=== PATIENT | female | born 1965 | race Caucasian/White ===

== ENCOUNTER 2016-06-05 12:41 | Inpatient (IN) | payer OTHER ==
[2016-06-05] MEDS ORDERED: diphenhydrAMINE 50 MG/ML 1 ML VIAL IVP STA (14:05)
[2016-06-05] MEDS ORDERED: SODIUM CHLORIDE 0.9% 1,000 ML IV ONE ×2 (14:05→17:07)
[2016-06-05] MEDS ORDERED: METOCLOPRAMIDE 5 MG/ML 2 ML VIAL IVP STA (14:05)
[2016-06-05] MEDS ORDERED: IPRATROPIUM-ALBUTEROL 3 ML NEB INHALATION STA ×2 (14:06→16:36)
[2016-06-05] MEDS ORDERED: methylPREDNISolone SOD SUCCI 125 MG/2 ML VIAL IV STA (14:06)
--- NOTE | 2016-06-05 14:15 | ED ---
Headache HPI - General Chief Complaint: Headache Stated Complaint: Confusion Time Seen by Provider: 06/05/16 13:53 Mode of arrival: ambulatory Limitations: no limitations - History of Present Illness Initial Comments: This is a 51-year-old female to history of chronic low back pain, COPD who presents emergency room for 3 days of constant analyzed headache. She states that it's all over her head and occasionally radiates to her neck. She states that she's been taking aspirin for this however this is not relieved her symptoms. She states that she now has a little bit of nausea because of the aspirin. She states that she has not had any vomiting. She denies any photophobia however admits to phonophobia. She states that she does get approximately 3-4 headaches per year however this one is atypical because she's had 3 or 4 headaches in the last couple of weeks. The daughter states that this morning she went to her house and noticed that she was acting a little bit confused and thus she decided to bring her in. The patient does admit to taking Xanax and 2 Bulan this morning which she is prescribed. She denies any fevers or chills. No chest pain however does admit to some shortness of breath especially at night. She states that she is wheezing a lot. She denies any other complaints. - Related Data Home Medications Medication Instructions Recorded Confirmed ALPRAZolam [Xanax] 1 mg PO TID 06/05/16 06/05/16 Albuterol Inhaler [Ventolin Hfa 2 puff INHALATION RT-Q4H PRN 06/05/16 06/05/16 Inhaler] Amitriptyline HCl [Elavil] 100 mg PO HS 06/05/16 06/05/16 Carisoprodol [Soma] 350 mg PO TID 06/05/16 06/05/16 HYDROcodone/APAP 10-325MG [Bulan 1 tab PO Q6H 06/05/16 06/05/16 10-325] Allergies Allergy/AdvReac Type Severity Reaction Status Date / Time No Known Allergies Allergy Verified 06/05/16 14:31 Review of Systems ROS Statement: Those systems with pertinent positive or pertinent negative responses have been documented in the HPI. ROS Other: All systems not noted in ROS Statement are negative. Past Medical History Additional Past Medical History / Comment(s): migraines chronic back pain History of Any Multi-Drug Resistant Organisms: None Reported Past Surgical History: No Surgical Hx Reported Past Psychological History: Anxiety, Depression Smoking Status: Current every day smoker Past Alcohol Use History: Occasional Past Drug Use History: None Reported General Exam - General Exam Comments Initial Comments: Constitutional: Awake alert Appears comfortable Head: Normocephalic atraumatic Eyes: no conjunctival injection No scleral icterus EOMI, pupils are 3 mm reactive bilaterally Neck: No JVD Supple, no meningismus Heart: Regular rate rhythm normal S1-S2 no murmurs Lungs: Bilateral inspiratory and expiratory wheezing No rales Abdomen: Soft nondistended nontender Extremities: Non edematous DP pulses intact Radial pulses intact Neuro: A&Ox3 cranial nerves II through XII are grossly intact, 5 out of 5 strength in upper and lower Chev[place] bilaterally, no ataxia with finger-nose and heel to burton testing. Psych: Appropriate mood and affect Limitations: no limitations Course Vital Signs 06/05/16 06/05/16 06/05/16 13:00 14:05 15:26 Temperature 99.0 F Pulse Rate 131 H 128 H Respiratory 18 16 Rate Blood Pressure 125/75 O2 Sat by Pulse Oximetry 06/05/16 06/05/16 06/05/16 15:37 16:23 16:42 Temperature 99.5 F Pulse Rate 126 H 119 H 118 H Respiratory 16 18 Rate Blood Pressure 114/71 O2 Sat by Pulse 81 L 94 L Oximetry 06/05/16 06/05/16 06/05/16 16:50 17:03 17:07 Temperature Pulse Rate 116 H 114 H Respiratory 18 Rate Blood Pressure O2 Sat by Pulse Oximetry 06/05/16 18:05 Temperature Pulse Rate 115 H Respiratory 22 Rate Blood Pressure 97/59 O2 Sat by Pulse 94 L Oximetry - Reevaluation(s) Reevaluation #1: 06/05/16 17:06 EKG showing sinus tachycardia with a rate of 116. No ST segment changes or T- wave inversions. QTC 472. Other intervals are normal. No ectopy. Reevaluation #2: 06/05/16 17:07 Is: The room by nursing. She states the patient was sleeping and having very shallow breaths. She checked a pulse ox and was 78%. She was placed on 4 L. Patient is persistently tachycardic. She does not claim any chest pain however I'm going to get a CT of her chest to further evaluate this. She does have low- grade temperature 99.5 and leukocytosis. There is concern for infection. Reevaluation #3: 06/05/16 18:05 Patient is currently comfortable. No headache at the time. She is awake and alert and able to speak with me. Seems improved from before when she is on the oxygen. She does desat rather quickly when the oxygen is taken away. CTA did not reveal pulmonary embolism however did show a left sided pneumonia. Patient started on Levaquin. Blood pressure is in the 90 systolic however lactic was normal previously. We will repeat lactic. Blood cultures are being drawn. Patient will be admitted for pneumonia and sepsis. Medical Decision Making - Medical Decision Making This 51-year-old female presents emergency department mostly for headache and confusion. Upon further workup the patient was found by hypoxic without oxygen. Her mental status did improve with the oxygen. She was found have a pneumonia on computed tomography scan. Patient also has CO2 retention however this appears chronic as her pH is within normal limits. She is awake and alert and able to speak with me. She does have some confused speech at times however I feel that this is multifactorial secondary to the infection and also all the medications that she took. She states that she took her Bulan, Xanax, and Soma this morning. BiPAP was not started at this time however she may required if her breathing gets worse. Going to admit her to [facility]. Patient is going to be admitted for sepsis and pneumonia to Dr. Henning. - Lab Data Result diagrams: 06/05/16 14:30 06/05/16 14:30 Lab Results 06/05/16 06/05/16 06/05/16 Range/Units 14:30 14:30 14:30 WBC 12.9 H (3.8-10.6) k/uL RBC 4.32 (3.80-5.40) m/uL Hgb 14.4 (11.4-16.0) gm/dL Hct 45.0 (34.0-46.0) % MCV 104.2 H (80.0-100.0) fL MCH 33.4 (25.0-35.0) pg MCHC 32.0 (31.0-37.0) g/dL RDW 12.6 (11.5-15.5) % Plt Count 291 (150-450) k/uL Neutrophils % 77 % Lymphocytes % 12 % Monocytes % 7 % Eosinophils % 2 % Basophils % 2 % Neutrophils # 9.9 H (1.3-7.7) k/uL Lymphocytes # 1.5 (1.0-4.8) k/uL Monocytes # 0.9 (0-1.0) k/uL Eosinophils # 0.2 (0-0.7) k/uL Basophils # 0.2 (0-0.2) k/uL Macrocytosis Slight PT 10.9 (9.0-12.0) sec INR 1.1 (<1.1) VBG pH (7.31-7.41) VBG pCO2 (37-51) mmHg VBG HCO3 (24-28) mmol/L Sodium 141 (137-145) mmol/L Potassium 4.2 (3.5-5.1) mmol/L Chloride 95 L (98-107) mmol/L Carbon Dioxide 37 H (22-30) mmol/L Anion Gap 9 mmol/L BUN 7 (7-17) mg/dL Creatinine 0.63 (0.52-1.04) mg/dL Est GFR (MDRD) Af Amer >60 (>60 ml/min/1.73 sqM) Est GFR (MDRD) Non-Af >60 (>60 ml/min/1.73 sqM) Glucose 103 H (74-99) mg/dL Plasma Lactic Acid Reilly (0.7-2.0) mmol/L Calcium 9.7 (8.4-10.2) mg/dL Magnesium 1.8 (1.6-2.3) mg/dL Total Bilirubin 0.7 (0.2-1.3) mg/dL AST 30 (14-36) U/L ALT 35 (9-52) U/L Alkaline Phosphatase 72 (38-126) U/L Total Protein 7.6 (6.3-8.2) g/dL Albumin 4.6 (3.5-5.0) g/dL Urine Color Urine Appearance (Clear) Urine pH (5.0-8.0) Ur Specific [place] (1.001-1.035) Urine Protein (Negative) Urine Glucose (UA) (Negative) Urine Ketones (Negative) Urine Blood (Negative) Urine Nitrate (Negative) Urine Bilirubin (Negative) Urine Urobilinogen (<2.0) mg/dL Ur Leukocyte Esterase (Negative) Urine RBC (0-5) /hpf Urine WBC (0-5) /hpf Ur Squamous Epith Cells (0-4) /hpf Urine Mucus (None) /hpf Urine HCG, Qual (Not Detectd) Urine Opiates Screen (NotDetected) Ur Oxycodone Screen (NotDetected) Urine Methadone Screen (NotDetected) Ur Propoxyphene Screen (NotDetected) Ur Barbiturates Screen (NotDetected) U Tricyclic Antidepress (NotDetected) Ur Phencyclidine Scrn (NotDetected) Ur Amphetamines Screen (NotDetected) U Methamphetamines Scrn (NotDetected) U Benzodiazepines Scrn (NotDetected) Urine Cocaine Screen (NotDetected) U Marijuana (THC) Screen (NotDetected) Serum Alcohol <10 mg/dL Influenza Type A RNA (Not Detectd) Influenza Type B (PCR) (Not Detectd) 06/05/16 06/05/16 06/05/16 Range/Units 14:30 14:30 15:25 WBC (3.8-10.6) k/uL RBC (3.80-5.40) m/uL Hgb (11.4-16.0) gm/dL Hct (34.0-46.0) % MCV (80.0-100.0) fL MCH (25.0-35.0) pg MCHC (31.0-37.0) g/dL RDW (11.5-15.5) % Plt Count (150-450) k/uL Neutrophils % % Lymphocytes % % Monocytes % % Eosinophils % % Basophils % % Neutrophils # (1.3-7.7) k/uL Lymphocytes # (1.0-4.8) k/uL Monocytes # (0-1.0) k/uL Eosinophils # (0-0.7) k/uL Basophils # (0-0.2) k/uL Macrocytosis PT (9.0-12.0) sec INR (<1.1) VBG pH 7.34 (7.31-7.41) VBG pCO2 68 H (37-51) mmHg VBG HCO3 36 H (24-28) mmol/L Sodium (137-145) mmol/L Potassium (3.5-5.1) mmol/L Chloride (98-107) mmol/L Carbon Dioxide (22-30) mmol/L Anion Gap mmol/L BUN (7-17) mg/dL Creatinine (0.52-1.04) mg/dL Est GFR (MDRD) Af Amer (>60 ml/min/1.73 sqM) Est GFR (MDRD) Non-Af (>60 ml/min/1.73 sqM) Glucose (74-99) mg/dL Plasma Lactic Acid Reilly 0.9 (0.7-2.0) mmol/L Calcium (8.4-10.2) mg/dL Magnesium (1.6-2.3) mg/dL Total Bilirubin (0.2-1.3) mg/dL AST (14-36) U/L ALT (9-52) U/L Alkaline Phosphatase (38-126) U/L Total Protein (6.3-8.2) g/dL Albumin (3.5-5.0) g/dL Urine Color Yellow Urine Appearance Cloudy H (Clear) Urine pH 7.5 (5.0-8.0) Ur Specific [place] 1.014 (1.001-1.035) Urine Protein Trace H (Negative) Urine Glucose (UA) Negative (Negative) Urine Ketones Negative (Negative) Urine Blood Negative (Negative) Urine Nitrate Negative (Negative) Urine Bilirubin Negative (Negative) Urine Urobilinogen <2.0 (<2.0) mg/dL Ur Leukocyte Esterase Negative (Negative) Urine RBC 2 (0-5) /hpf Urine WBC 1 (0-5) /hpf Ur Squamous Epith Cells 4 (0-4) /hpf Urine Mucus Rare H (None) /hpf Urine HCG, Qual (Not Detectd) Urine Opiates Screen Not Detected (NotDetected) Ur Oxycodone Screen Detected H (NotDetected) Urine Methadone Screen Not Detected (NotDetected) Ur Propoxyphene Screen Not Detected (NotDetected) Ur Barbiturates Screen Not Detected (NotDetected) U Tricyclic Antidepress Detected H (NotDetected) Ur Phencyclidine Scrn Not Detected (NotDetected) Ur Amphetamines Screen Not Detected (NotDetected) U Methamphetamines Scrn Not Detected (NotDetected) U Benzodiazepines Scrn Detected H (NotDetected) Urine Cocaine Screen Not Detected (NotDetected) U Marijuana (THC) Screen Not Detected (NotDetected) Serum Alcohol mg/dL Influenza Type A RNA (Not Detectd) Influenza Type B (PCR) (Not Detectd) 06/05/16 06/05/16 Range/Units 15:25 17:00 WBC (3.8-10.6) k/uL RBC (3.80-5.40) m/uL Hgb (11.4-16.0) gm/dL Hct (34.0-46.0) % MCV (80.0-100.0) fL MCH (25.0-35.0) pg MCHC (31.0-37.0) g/dL RDW (11.5-15.5) % Plt Count (150-450) k/uL Neutrophils % % Lymphocytes % % Monocytes % % Eosinophils % % Basophils % % Neutrophils # (1.3-7.7) k/uL Lymphocytes # (1.0-4.8) k/uL Monocytes # (0-1.0) k/uL Eosinophils # (0-0.7) k/uL Basophils # (0-0.2) k/uL Macrocytosis PT (9.0-12.0) sec INR (<1.1) VBG pH (7.31-7.41) VBG pCO2 (37-51) mmHg VBG HCO3 (24-28) mmol/L Sodium (137-145) mmol/L Potassium (3.5-5.1) mmol/L Chloride (98-107) mmol/L Carbon Dioxide (22-30) mmol/L Anion Gap mmol/L BUN (7-17) mg/dL Creatinine (0.52-1.04) mg/dL Est GFR (MDRD) Af Amer (>60 ml/min/1.73 sqM) Est GFR (MDRD) Non-Af (>60 ml/min/1.73 sqM) Glucose (74-99) mg/dL Plasma Lactic Acid Reilly (0.7-2.0) mmol/L Calcium (8.4-10.2) mg/dL Magnesium (1.6-2.3) mg/dL Total Bilirubin (0.2-1.3) mg/dL AST (14-36) U/L ALT (9-52) U/L Alkaline Phosphatase (38-126) U/L Total Protein (6.3-8.2) g/dL Albumin (3.5-5.0) g/dL Urine Color Urine Appearance (Clear) Urine pH (5.0-8.0) Ur Specific [place] (1.001-1.035) Urine Protein (Negative) Urine Glucose (UA) (Negative) Urine Ketones (Negative) Urine Blood (Negative) Urine Nitrate (Negative) Urine Bilirubin (Negative) Urine Urobilinogen (<2.0) mg/dL Ur Leukocyte Esterase (Negative) Urine RBC (0-5) /hpf Urine WBC (0-5) /hpf Ur Squamous Epith Cells (0-4) /hpf Urine Mucus (None) /hpf Urine HCG, Qual Not Detected (Not Detectd) Urine Opiates Screen (NotDetected) Ur Oxycodone Screen (NotDetected) Urine Methadone Screen (NotDetected) Ur Propoxyphene Screen (NotDetected) Ur Barbiturates Screen (NotDetected) U Tricyclic Antidepress (NotDetected) Ur Phencyclidine Scrn (NotDetected) Ur Amphetamines Screen (NotDetected) U Methamphetamines Scrn (NotDetected) U Benzodiazepines Scrn (NotDetected) Urine Cocaine Screen (NotDetected) U Marijuana (THC) Screen (NotDetected) Serum Alcohol mg/dL Influenza Type A RNA Not Detected (Not Detectd) Influenza Type B (PCR) Not Detected (Not Detectd) Disposition Clinical Impression: Sepsis, CAP (community acquired pneumonia), Encephalopathy Disposition: ADMITTED IP TO THIS HOSP Condition: Fair
[2016-06-05 14:37] LABS: Basophils # (A) 0.2 k/uL (0-0.2); Basophils % (A) 2 %; CH 33.3; CHCM 32.1; Eosinophils # (A) 0.2 k/uL (0-0.7); Eosinophils % (A) 2 %; HDW 2.18; HGB 14.4 gm/dL (11.4-16.0); Luc # (Auto) 0.14; Luc % (Auto) 1; Lymphocytes # (A) 1.5 k/uL (1.0-4.8); Lymphocytes % (A) 12 %; MCH 33.4 pg (25.0-35.0); MCV 104.2 fL (80.0-100.0); Macrocytosis Slight; Mean Platelet Volume 7.2; Monocytes # (A) 0.9 k/uL (0-1.0); Monocytes % (A) 7 %; Neutrophils # (A) 9.9 k/uL (1.3-7.7); Neutrophils % (A) 77 %; RBC 4.32 m/uL (3.80-5.40); RDW 12.6 % (11.5-15.5); WBC 12.9 k/uL (3.8-10.6); WBC (Perox) 13.22
[2016-06-05 14:38] LABS: VBG PH 7.34 (7.31-7.41)
--- NOTE | 2016-06-05 14:45 | XR ---
EXAMINATION TYPE: XR chest 2V DATE OF EXAM: 06/05/2016 2:41 PM COMPARISON: 06/19/2012 HISTORY: Shortness of breath TECHNIQUE: Frontal and lateral views of the chest are obtained. FINDINGS: Scattered senescent parenchymal changes noted. Hyperinflation compatible with COPD. No evidence for infiltrate. No evidence for atelectasis. Heart size is stable. Mediastinal structures are stable and grossly unremarkable. No evidence for hilar prominence. Degenerative changes dorsal spine. IMPRESSION: 1. No evidence for acute pulmonary disease.
[2016-06-05 14:46] LABS: ALT 35 U/L (9-52); AST 30 U/L (14-36); Alcohol <10 mg/dL; Alkaline Phosphatase 72 U/L (38-126); Anion Gap 9 mmol/L; Blood Urea Nitrogen 7 mg/dL (7-17); Calcium 9.7 mg/dL (8.4-10.2); Carbon Dioxide 37 mmol/L (22-30); Chloride 95 mmol/L (98-107); Glucose 103 mg/dL (74-99); Magnesium 1.8 mg/dL (1.6-2.3); Non-African American GFR(MDRD) >60 (>60 ml/min/1.73 sqM); Potassium 4.2 mmol/L (3.5-5.1); Sodium 141 mmol/L (137-145); Total Bilirubin 0.7 mg/dL (0.2-1.3); Total Protein 7.6 g/dL (6.3-8.2)
[2016-06-05 14:48] LABS: INR 1.1 (<1.1); Prothrombin Time 10.9 sec (9.0-12.0)
--- NOTE | 2016-06-05 15:16 | CT ---
EXAMINATION TYPE: CT brain wo con DATE OF EXAM: 06/05/2016 3:05 PM COMPARISON: 07/25/2011 INDICATION: Headache for 3-4 days with nausea DLP: 1121 mGycm, Automated exposure control for dose reduction was used. CONTRAST: None CT of the brain is performed utilizing 3 mm thick sections through the posterior fossa and 3 mm thick sections through the remaining calvarium. Study is performed within 24 hours of arrival to the hosp [facility]. No abnormal hyperdensity is present to suggest an acute intracranial hemorrhage. No mass lesion is evident. No acute infarcts are evident. Ventricles and sulci are appropriate for the patient age. Paranasal sinuses and mastoid air cells within the [id number] are clear. IMPRESSIONS: 1. Normal CT Brain
[2016-06-05 15:44] LABS: Appearance,Urine Cloudy (Clear); Bilirubin,Urine Negative (Negative); Glucose,Urine (UA) Negative (Negative); Ketones,Urine Negative (Negative); Leukocyte Esterase,Urine Negative (Negative); Mucus,Urine Rare /hpf; Nitrite,Urine Negative (Negative); PH, Urine 7.5 (5.0-8.0); Particle Count 6900; Protein,Urine Trace (Negative); RBC,Urine 2 /hpf (0-5); Specific Gravity,Urine 1.014 (1.001-1.035); Squamous Epithelial Cell,Urine 4 /hpf (0-4); UA Billing (MACRO vs. MICRO) MICRO; Urobilinogen,Urine <2.0 mg/dL (<2.0); WBC,Urine 1 /hpf (0-5)
[2016-06-05] MEDS ORDERED: KETOROLAC 30 MG/ML 1 ML VIAL IVP STA (15:45)
[2016-06-05] MEDS ORDERED: RX INFO: IV CONTRAST WAS GIVEN 1 EACH MISC MISCELLANE PRN (16:35)
--- NOTE | 2016-06-05 17:44 | CT ---
EXAMINATION TYPE: CT angio chest DATE OF EXAM: 06/05/2016 5:25 PM COMPARISON: NONE HISTORY: Pt states of SOB today. CT DLP: 309 mGycm Automated exposure control for dose reduction was used. CONTRAST: CTA scan of the thorax is performed with IV Contrast, patient injected with 90 mL of Omnipaque 350, p ulmonary embolism protocol. . There are Three-D postprocessed images. FINDINGS: There is mild pulmonary emphysema. There is a poorly marginated 4 cm infiltrate in the left lower lob e superior segment. There is no evidence of a pulmonary mass. There is no pleural effusion. Heart size is normal. There is normal contrast opacification of the pulmonary arteries. I see no fill ing defect. There are no hilar masses. There is no mediastinal adenopathy. There is normal appearance of the thoracic aorta. There is no sign of aneurysm or dissection. There is a small hiatal hernia. T here is an enlarged air filled thoracic esophagus. IMPRESSION: NO EVIDENCE OF PULMONARY EMBOLISM. THERE IS A 4 CM INFILTRATE IN THE LEFT LOWER LOBE THAT IS PROBABLY ORDINARY BRONCHOPNEUMONIA. PULMONARY EMPHYSEMA. HIATAL HERNIA WITH AIR IN THE THORACIC ESOPHAGUS COULD RELATE TO ESOPHAGEAL DYSF UNCTION.
[2016-06-05] MEDS ORDERED: AZITHROMYCIN 500 MG in SODIUM CHLORIDE 0.9% 250 ML IVPB STA (17:46)
[2016-06-05] MEDS ORDERED: PNEUMONIA PROTOCOL UTILIZED 1 EACH MISC PO PRN (18:00)
[2016-06-05] MEDS ORDERED: LEVOFLOXACIN 750MG-D5W PMX 750 MG in DEXTROSE/WATER 1 150ML.BAG IVPB STA (18:00)
[2016-06-05] MEDS: SODIUM CHLORIDE 0.9% 1,000 ML IV SCH (22:37)
[2016-06-06] MEDS ORDERED: ALBUTEROL NEBULIZED 2.5 MG/3 ML INHALATION PRN (01:11)
[2016-06-06] MEDS: HYDROcodone/APAP 10-325MG 1 EACH TAB PO PRN ×3 (04:00→22:03)
[2016-06-06] MEDS: NICOTINE 21MG/24HR PATCH TRANSDERM SCH (08:17)
[2016-06-06] MEDS: ALPRAZolam 0.5 MG TAB PO SCH ×3 (08:18→21:58)
[2016-06-06] MEDS: SODIUM CHLORIDE 0.9% 1,000 ML IV SCH ×2 (08:20→15:08)
[2016-06-06] MEDS: CARISOPRODOL 350 MG TAB PO PRN ×2 (11:38→17:10)
--- NOTE | 2016-06-06 12:35 | P.CNPUL ---
History of Present Illness Consult date: 06/06/16 Requesting physician: Marck Henning Reason for consult: COPD, pneumonia Chief complaint: Headaches and mental status change History of present illness: This is a 51-year-old female to history of chronic low back pain, COPD who presents emergency room for 3 days of constant analyzed headache. She states that it's all over her head and occasionally radiates to her neck. She states that she's been taking aspirin for this however this is not relieved her symptoms. She states that she now has a little bit of nausea because of the aspirin. She states that she has not had any vomiting. She denies any photophobia . She states that she does get approximately 3-4 headaches per year however this one is atypical because she's had 3 or 4 headaches in the last couple of weeks. The daughter went to her house and noticed that she was acting a little bit confused and thus she decided to bring her in. The patient does admit to taking Xanax and 2 [place] this morning which she is prescribed. She denies any fevers or chills. No chest pain however does admit to some shortness of breath especially at night. She states that she is wheezing a lot. She denies any other complaints. Workup in the ER included a CT of the brain which was negative, chest x-ray which was also negative, CT of the chest was done to rule out pulmonary embolism, and it showed a very tiny limited infiltrate in the left lower lobe. According to the patient when she came into the ER, she has no pulmonary symptoms whatsoever, she has a chronic cough related to have COPD, but once the ER physician noticed the abnormal CT of the chest, patient was admitted with the impression of pneumonia although the patient has no pulmonary symptoms whatsoever upon presentation. CBC showed a bit of leukocytosis, patient had a venous ABG which showed a relative hypercapnia, mild with excellent metabolic compensation, and that's expected considering the patient's underlying COPD, her baseline bicarb on the electrolytes is 37. Drug screen was positive for oxycodone try cyclic's and benzodiazepines. Patient was admitted and this consult was initiated. Presently, the patient denies any shortness of breath, she has chronic occasional cough, denies any fever no chills no hemoptysis no chest pain. Review of Systems 14 point review of systems were obtained, please refer to pertinent positives and negatives in HPI. Past Medical History Past Medical History: Asthma, COPD, Pneumonia Additional Past Medical History / Comment(s): migraines chronic back pain "sporatic hand tremors-sometimes i just drops things" History of Any Multi-Drug Resistant Organisms: None Reported Past Surgical History: No Surgical Hx Reported Additional Past Surgical History / Comment(s): wisdom teeth extracted Past Anesthesia/Blood Transfusion Reactions: No Reported Reaction Past Psychological History: Anxiety, Depression Smoking Status: Current every day smoker Past Alcohol Use History: None Reported Additional Past Alcohol Use History / Comment(s): started smoking at age 14 was smoking 1-1.5 ppd now down to 8 cig per day trying to quit. Past Drug Use History: None Reported - Past Family History Mother Family Medical History: Cancer, Hypertension Additional Family Medical History / Comment(s): throat cancer, anxiety, depression Father Family Medical History: Liver Disease Additional Family Medical History / Comment(s): from cirrhosis of the liver wehn pt was 16 years old. Medications and Allergies Home Medications Medication Instructions Recorded Confirmed Type ALPRAZolam [Xanax] 1 mg PO TID 06/05/16 06/05/16 History Albuterol Inhaler [Ventolin Hfa 2 puff INHALATION RT-Q4H PRN 06/05/16 06/05/16 History Inhaler] Amitriptyline HCl [Elavil] 100 mg PO HS 06/05/16 06/05/16 History Carisoprodol [Soma] 350 mg PO TID 06/05/16 06/05/16 History HYDROcodone/APAP 10-325MG [Townsend 1 tab PO Q6H 06/05/16 06/05/16 History 10-325] Allergies Allergy/AdvReac Type Severity Reaction Status Date / Time Influenza Virus Vaccines Allergy Unknown Verified 06/05/16 19:49 Physical Exam Vitals: Vital Signs Temp Pulse Pulse Resp BP BP Pulse Ox 06/06/16 11:00 98.2 F 83 16 94/57 95 06/06/16 08:40 84 16 06/06/16 07:55 96.5 F L 84 16 103/72 99 06/06/16 04:00 96.4 F L 89 18 115/70 95 06/06/16 00:30 96.8 F L 91 20 95/54 95 06/05/16 20:25 97.1 F L 102 H 20 105/66 94 L 06/05/16 19:07 98.0 F 108 H 16 104/71 96 06/05/16 18:05 115 H 22 97/59 94 L Intake and Output 06/05/16 06/06/16 06/06/16 22:59 06:59 14:59 Intake Total 1350 120 Output Total 400 Balance -400 1350 120 Intake: IV 1350 Levofloxacin 750Mg-D5w 150 Pmx 750 mg In Dextrose/ Water 1 150ml.bag @ 100 mls/hr IVPB ONCE STA Rx#: [id number] Sodium Chloride 0.9% 1, 1200 000 ml @ 100 mls/hr IV . Q10H ERIC Rx#:[id number] Oral 120 Output: Urine 400 Other: Voiding Method Toilet Toilet Toilet # Voids 3 Weight 43.5 kg 43.5 kg Patient Weight 06/07/16 06:59 Weight 43.5 kg Physical Exam: Revealed a 51-year-old female in no distress HEENT:[Neck is supple.] [No neck masses.] [No thyromegaly.] [No JVD.] Chest: [Diminished breath sounds at the bases some wheezing on forced expiratory maneuver only] Cardiac Exam: [Normal S1 and S2, no S3 gallop, no murmur.] Abdomen: [Soft, nontender, no megaly, no rebound, no guarding, normal bowel sounds.] Extremities: [No clubbing, no edema, no cyanosis.] Neurological Exam: [No focal neurologic deficit.] Results - Laboratory Findings CBC and BMP: 06/05/16 14:30 06/05/16 14:30 PT/INR, D-dimer PT 10.9 sec (9.0-12.0) 06/05/16 14:30 INR 1.1 (<1.1) 06/05/16 14:30 - Diagnostic Findings Chest x-ray: image reviewed CT scan - chest: image reviewed Assessment and Plan Plan: Impression: 1 chronic cephalgia, etiology is not clear, patient had a negative CT of the brain, she had chronic headaches for most of her life, hence I recommended a neurological evaluation and input regarding her symptoms and her symptoms of mental status change. I believe her mental status changes mostly related to the narcotics and anxiolytic medications that the patient was taking. 2 history of severe COPD and possible mild exacerbation on presentation. 3 limited left lower lobe infiltrate, this could be managed with antibiotics on outpatient basis. Recommendation: 1 neurologic consult 2 resume her usual medications for chronic cephalgia 3 continue albuterol with Atrovent, continue Levaquin, counseled regarding smoking cessation, continue nicotine patch, consider discharge planning and the patient is cleared by neurology. Again her COPD and her pneumonia could be treated on outpatient basis. Patient will be given a follow-up appointment to see me on outpatient basis. Time with Patient: Greater than 30
[2016-06-06] MEDS: ALBUTEROL NEBULIZED 2.5 MG/3 ML INHALATION PRN ×2 (16:52→20:55)
[2016-06-06] MEDS: LEVOFLOXACIN 750 MG TAB PO SCH (17:10)
--- NOTE | 2016-06-06 17:30 | P.HPIM ---
History of Present Illness 51-year-old female was brought to the emergency room after having some periods of confusion. Patient has a history of chronic low back pain and COPD. Patient was complaining of headache. Review of Systems Constitutional: Reports fatigue Respiratory: Reports cough Neurological: Reports headaches, Reports migraines Past Medical History Past Medical History: Asthma, COPD, Pneumonia Additional Past Medical History / Comment(s): migraines chronic back pain "sporatic hand tremors-sometimes i just drops things" History of Any Multi-Drug Resistant Organisms: None Reported Past Surgical History: No Surgical Hx Reported Additional Past Surgical History / Comment(s): wisdom teeth extracted Past Anesthesia/Blood Transfusion Reactions: No Reported Reaction Past Psychological History: Anxiety, Depression Smoking Status: Current every day smoker Past Alcohol Use History: None Reported Additional Past Alcohol Use History / Comment(s): started smoking at age 14 was smoking 1-1.5 ppd now down to 8 cig per day trying to quit. Past Drug Use History: None Reported - Past Family History Mother Family Medical History: Cancer, Hypertension Additional Family Medical History / Comment(s): throat cancer, anxiety, depression Father Family Medical History: Liver Disease Additional Family Medical History / Comment(s): from cirrhosis of the liver wehn pt was 16 years old. Medications and Allergies Home Medications Medication Instructions Recorded Confirmed Type ALPRAZolam [Xanax] 1 mg PO TID 06/05/16 06/05/16 History Albuterol Inhaler [Ventolin Hfa 2 puff INHALATION RT-Q4H PRN 06/05/16 06/05/16 History Inhaler] Amitriptyline HCl [Elavil] 100 mg PO HS 06/05/16 06/05/16 History Carisoprodol [Soma] 350 mg PO TID 06/05/16 06/05/16 History HYDROcodone/APAP 10-325MG [[place] 1 tab PO Q6H 06/05/16 06/05/16 History 10-325] Allergies Allergy/AdvReac Type Severity Reaction Status Date / Time Influenza Virus Vaccines Allergy Unknown Verified 06/05/16 19:49 Physical Exam Vitals: Vital Signs Temp Pulse Pulse Resp BP BP Pulse Ox 06/06/16 17:01 110 H 06/06/16 16:52 110 H 06/06/16 16:00 16 112/65 100 06/06/16 11:00 98.2 F 83 16 94/57 95 06/06/16 08:40 84 16 06/06/16 07:55 96.5 F L 84 16 103/72 99 06/06/16 04:00 96.4 F L 89 18 115/70 95 06/06/16 00:30 96.8 F L 91 20 95/54 95 06/05/16 20:25 97.1 F L 102 H 20 105/66 94 L 06/05/16 19:07 98.0 F 108 H 16 104/71 96 06/05/16 18:05 115 H 22 97/59 94 L Intake and Output 06/06/16 06/06/16 06/06/16 06:59 14:59 22:59 Intake Total 1350 120 Balance 1350 120 Intake: IV 1350 Levofloxacin 750Mg-D5w 150 Pmx 750 mg In Dextrose/ Water 1 150ml.bag @ 100 mls/hr IVPB ONCE STA Rx#: [id number] Sodium Chloride 0.9% 1, 1200 000 ml @ 100 mls/hr IV . Q10H [facility] Rx#:[id number] Oral 120 Other: Voiding Method Toilet Toilet # Voids 3 1 Weight 43.5 kg 43.5 kg Patient Weight 06/07/16 06:59 Weight 43.5 kg - Constitutional General appearance: thin - EENT Eyes: PERRLA Ears: bilateral: normal - Neck Neck: normal ROM - Respiratory Respiratory: bilateral: rhonchi - Cardiovascular Rhythm: regular - Gastrointestinal General gastrointestinal: soft - Integumentary Integumentary: normal - Neurologic Neurologic: CNII-XII intact - Psychiatric Psychiatric: A&O x's 3, appropriate affect, intact judgment & insight Results CBC & Chem 7: 06/05/16 14:30 06/05/16 14:30 Abdominal x-ray: report reviewed CT scan - chest: report reviewed CT Scan - head: report reviewed Thrombosis Risk Factor Assmnt - Choose All That Apply Any of the Below Risk Factors Present?: Yes Each Factor Represents 1 point: Abnormal pulmonary function (COPD), Age 41-60 years, Sepsis (< 1month), Serious lung disease incl. pneumonia (< 1month) Other Risk Factors: No Other congenital or acquired thrombophilia - If yes, enter type in comment: No Thrombosis Risk Factor Assessment Total Risk Factor Score: 4 Thrombosis Risk Factor Assessment Level: Moderate Risk Assessment and Plan Plan: Assessment Sepsis community-acquired pneumonia Encephalopathy Migraines Chronic pain COPD severe with hypoxia Nicotine use Plan Pulmonology consultation Neurology Dr. Sanchez regarding headache Patient on Levaquin and Zithromax
[2016-06-06] MEDS: AMITRIPTYLINE HCL 50 MG TAB PO SCH (21:57)
--- NOTE | 2016-06-07 05:14 | CONS ---
DATE OF CONSULTATION: 06/06/2016 CHIEF COMPLAINT: Headache and altered mental status. HISTORY OF PRESENT ILLNESS: Mrs. Avendaño is a 51-year-old, female who is being evaluated by the neurology service per the request of Dr. Marck Henning for the above-mentioned complaints. The patient was brought into [facility] Emergency Room after she was found to be confused by her family. The patient denies any recent head injuries and denies any fevers. She was also complaining of a headache that she describes as a throbbing pain that is mostly in the bilateral occipital region. A CT scan of the brain was done, which was negative. Her CBC showed mild leukocytosis at 12.9. Her comprehensive metabolic profile and urinalysis were normal. Her urine drug screen was positive for oxycodone, tricyclic antidepressants, and benzodiazepine. According to her home medications, the patient is not on any oxycodone. She does report being treated with [place] for her chronic low back pain, which is being prescribed by Dr. De Paz. Her urine drug screen was negative for opiates. She is on Xanax at home and Elavil at home, which makes the rest of her urine drug screen consistent. At the time of my evaluation, the patient's mental status has significantly improved. She is quite awake, and oriented. She was diagnosed with pneumonia and she is be on antibiotics for this. She continues to complain of a headache that is in the occipital region. She rates the headache at 6 out of 10 in intensity at the time of my evaluation. PAST MEDICAL HISTORY: Chronic pain syndrome, chronic obstructive pulmonary disease, asthma, migraine headaches, anxiety disorder, depression. SOCIAL HISTORY: The patient is a current every day smoker. She denies any alcohol or IV drug use. FAMILY HISTORY: Positive for cancer, depression, hypertension, liver disease. HOME MEDICATIONS: Reviewed in the chart. ALLERGIES: INFLUENZA VIRUS VACCINE. REVIEW OF SYSTEMS: CONSTITUTIONAL: Negative. EYES: Negative. ENT: Negative. CARDIOVASCULAR: Negative. RESPIRATORY: Positive for occasional shortness of breath and frequent coughs. NEUROLOGICAL: As mentioned above. GASTROINTESTINAL: Negative. GENITOURINARY: Negative. PSYCHIATRIC: As mentioned above. DERMATOLOGICAL: Negative. MUSCULOSKELETAL: As mentioned above. ENDOCRINE: Negative. PHYSICAL EXAM: Vital signs show a temperature of 98.2, pulse 110, respirations 16, blood pressure 112/65. GENERAL APPEARANCE: The patient is a thin female who appears to be in no acute distress. HEENT: Normocephalic, atraumatic, no facial asymmetry is seen. Extraocular muscles are intact. Tenderness to palpation is felt along bilateral greater occipital nerve regions. Neck is supple with no masses felt. CARDIOVASCULAR: Regular rate and rhythm. ABDOMEN: Nontender, nondistended. Extremities showed no edema or clubbing. NEUROLOGICAL EXAM: The patient is alert, aware, and oriented x3. Speech and language are normal. Strength is full in all 4 extremities. Sensory exam was normal to light touch in all 4 extremities. No facial asymmetry is noticed on cranial nerve testing. No tremors or seizure-like activity is seen. IMPRESSION: 1. Recurrent headaches. 2. Bilateral occipital neuritis. 3. Altered mental status, improved. 4. Acute toxic and infectious encephalopathy, improved. 5. Pneumonia. 6. Chronic pain syndrome. RECOMMENDATIONS: The patient's altered mental status has resolved. I do believe she had acute encephalopathy, likely due to her pneumonia, but this could also be due to toxic encephalopathy given her urine drug screen. Her urine drug screen was positive for oxycodone, although she is not prescribed this medication. She is prescribed [place], by Dr. De Paz, but her urine test was negative for opiates. The patient was counseled on only taking her medications as prescribed. I did review her CT scan of the brain, which was normal. An EEG has been ordered. As for her headaches, she does have evidence of occipital neuritis on my examination. Treatment options were discussed with the patient and she would likely benefit from a greater occipital nerve block, which will be done in the outpatient setting. Continue antibiotic therapy for her pneumonia. Continue neuro checks for now. I will continue to follow with you. Further recommendations to follow. Thank you Dr. Henning for allowing me to participate in the care of your patient. If you have any questions, please feel free to contact me.
[2016-06-07] MEDS: ALPRAZolam 0.5 MG TAB PO SCH ×3 (10:13→20:04)
[2016-06-07] MEDS: NICOTINE 21MG/24HR PATCH TRANSDERM SCH (10:14)
[2016-06-07] MEDS: SODIUM CHLORIDE 0.9% 1,000 ML IV SCH ×3 (10:32→19:05)
--- NOTE | 2016-06-07 11:45 | P.PN ---
Subjective Patient complaining of headache this morning. Patient consultation with Dr. Sanchez on Dr. Sanchez has ordered an EEG and recommended outpatient therapy for occipital nerve block Objective - Vital Signs Vital signs: Vital Signs Temp 97.8 F 06/07/16 11:00 Pulse 106 H 06/07/16 11:00 Resp 20 06/07/16 11:00 BP 129/84 06/07/16 11:00 Pulse Ox 92 L 06/07/16 11:00 Intake & Output 06/06/16 06/07/16 06/07/16 18:59 06:59 18:59 Intake Total 120 1400 Balance 120 1400 Weight 43.5 kg 43.7 kg Intake: IV 1200 Sodium Chloride 0.9% 1, 1200 000 ml @ 100 mls/hr IV . Q10H [facility] Rx#:[id number] Oral 120 200 Other: Voiding Method Toilet Toilet # Voids 1 2 - Constitutional General appearance: Present: thin - EENT Eyes: Present: PERRLA Ears: bilateral: normal - Neck Neck: Present: normal ROM - Respiratory Respiratory: bilateral: CTA - Cardiovascular Rhythm: regular - Gastrointestinal General gastrointestinal: Present: soft - Integumentary Integumentary: Present: normal - Neurologic Neurologic: Present: CNII-XII intact - Musculoskeletal Musculoskeletal: Present: generalized weakness - Psychiatric Psychiatric: Present: A&O x's 3, appropriate affect, intact judgment & insight - Labs CBC & Chem 7: 06/05/16 14:30 06/05/16 14:30 Assessment and Plan Plan: Assessment Community-acquired pneumonia with sepsis encephalopathy Headache history of migraine Chronic pain History of COPD History of smoking Plan Continue consultation with Dr. Sanchez hopeful discharge soon patient on Levaquin and Zithromax
[2016-06-07] MEDS: LEVOFLOXACIN 750 MG TAB PO SCH (16:12)
[2016-06-07] MEDS: methylPREDNISolone 4 MG TAB TAPER PO SCH (16:13)
--- NOTE | 2016-06-07 16:13 | P.PN ---
Subjective Principal diagnosis: Limited left lower lobe infiltrate/pneumonia This is a 51-year-old female to history of chronic low back pain, COPD who presents emergency room for 3 days of constant analyzed headache. She states that it's all over her head and occasionally radiates to her neck. She states that she's been taking aspirin for this however this is not relieved her symptoms. She states that she now has a little bit of nausea because of the aspirin. She states that she has not had any vomiting. She denies any photophobia . She states that she does get approximately 3-4 headaches per year however this one is atypical because she's had 3 or 4 headaches in the last couple of weeks. The daughter went to her house and noticed that she was acting a little bit confused and thus she decided to bring her in. The patient does admit to taking Xanax and 2 [place] this morning which she is prescribed. She denies any fevers or chills. No chest pain however does admit to some shortness of breath especially at night. She states that she is wheezing a lot. She denies any other complaints. Workup in the ER included a CT of the brain which was negative, chest x-ray which was also negative, CT of the chest was done to rule out pulmonary embolism, and it showed a very tiny limited infiltrate in the left lower lobe. According to the patient when she came into the ER, she has no pulmonary symptoms whatsoever, she has a chronic cough related to have COPD, but once the ER physician noticed the abnormal CT of the chest, patient was admitted with the impression of pneumonia although the patient has no pulmonary symptoms whatsoever upon presentation. CBC showed a bit of leukocytosis, patient had a venous ABG which showed a relative hypercapnia, mild with excellent metabolic compensation, and that's expected considering the patient's underlying COPD, her baseline bicarb on the electrolytes is 37. Drug screen was positive for oxycodone try cyclic's and benzodiazepines. Patient was admitted and this consult was initiated. Presently, the patient denies any shortness of breath, she has chronic occasional cough, denies any fever no chills no hemoptysis no chest pain. Patient was reevaluated today on 06/07/2016, slightly better, headaches is about the same, no major pulmonary symptoms except for minimal cough, and occasional wheezing again had a CT of the chest showed a very limited tiny area of infiltrate, and clinically the patient has some component of COPD. I believe the patient could be discharged home on oral antibiotics, and follow-up on outpatient basis. Objective - Vital Signs Vital signs: Vital Signs Temp 97.7 F 06/07/16 15:00 Pulse 94 06/07/16 15:00 Resp 20 06/07/16 15:00 BP 116/71 06/07/16 15:00 Pulse Ox 98 06/07/16 15:00 Intake & Output 06/06/16 06/07/16 06/07/16 18:59 06:59 18:59 Intake Total 120 1400 800 Balance 120 1400 800 Weight 43.5 kg 43.7 kg Intake: IV 1200 800 Sodium Chloride 0.9% 1, 1200 800 000 ml @ 100 mls/hr IV . Q10H [facility] Rx#:[id number] Oral 120 200 Other: Voiding Method Toilet Toilet # Voids 1 2 - Exam Physical Exam: Revealed a 51-year-old female in no distress HEENT:[Neck is supple.] [No neck masses.] [No thyromegaly.] [No JVD.] Chest: [Diminished breath sounds at the bases some wheezing on forced expiratory maneuver only] Cardiac Exam: [Normal S1 and S2, no S3 gallop, no murmur.] Abdomen: [Soft, nontender, no megaly, no rebound, no guarding, normal bowel sounds.] Extremities: [No clubbing, no edema, no cyanosis.] Neurological Exam: [No focal neurologic deficit.] - Labs CBC & Chem 7: 06/05/16 14:30 06/05/16 14:30 Assessment and Plan Plan: Impression: 1 chronic cephalgia, etiology is not clear, patient had a negative CT of the brain, she had chronic headaches for most of her life, neurologic consultation was appreciated, patient could have probable follow-up for her occipital neuralgia symptoms. And this is on outpatient basis. 2 history of severe COPD and possible mild exacerbation on presentation. 3 limited left lower lobe infiltrate, this could be managed with antibiotics on outpatient basis. Recommendation: Continue present treatment plan, consider switching the patient to oral antibiotics Levaquin in the morning, and discharge the patient home on a course of Levaquin, Medrol Dosepak, and bronchodilators in the form of albuterol and Atrovent updrafts 4 times a day and when necessary. Patient must stop smoking.. Time with Patient: Less than 30
[2016-06-07] MEDS: AMITRIPTYLINE HCL 50 MG TAB PO SCH (20:04)
[2016-06-07] MEDS: HYDROcodone/APAP 10-325MG 1 EACH TAB PO PRN (20:04)
[2016-06-07] MEDS: CARISOPRODOL 350 MG TAB PO PRN (22:16)
[2016-06-07 23:55] VITALS: RESP 16
[2016-06-08] MEDS: HYDROcodone/APAP 10-325MG 1 EACH TAB PO PRN ×2 (01:45→11:56)
[2016-06-08] MEDS: ALPRAZolam 0.5 MG TAB PO SCH ×2 (07:56→16:00)
[2016-06-08] MEDS: NICOTINE 21MG/24HR PATCH TRANSDERM SCH (07:57)
[2016-06-08] MEDS: methylPREDNISolone 4 MG TAB TAPER PO SCH (07:57)
[2016-06-08 08:34] VITALS: BP 97/67; TEMP 98.3
[2016-06-08] MEDS: SODIUM CHLORIDE 0.9% 1,000 ML IV SCH ×2 (09:09→16:02)
[2016-06-08] MEDS: CARISOPRODOL 350 MG TAB PO PRN (09:09)
[2016-06-08 11:04] VITALS: BMI 16.0
[2016-06-08] MEDS: ALBUTEROL NEBULIZED 2.5 MG/3 ML INHALATION PRN (11:48)
[2016-06-08 11:50] VITALS: PULSE 80
--- NOTE | 2016-06-08 13:09 | EEG ---
DATE OF SERVICE: 06/07/2016 REASON FOR TESTING: Altered mental status. AGE: 51Y DESCRIPTION OF THE PROCEDURE: This EEG was performed using a 21-channel digital electroencephalograph, following the international 10 to 20 system. DESCRIPTION OF THE RECORDING: From the beginning of the tracing, and with the patient's eyes closed, the background rhythm was mostly consisting of 9 Hz alpha frequency in the posterior occipital leads. No obvious asymmetry is seen. Photic stimulation was performed with a minimal driving response seen. No pathological waves were elicited. Hyperventilation was not performed. Occasional muscle artifacts and movement artifacts are seen. The patient remains awake throughout the tracing. No epileptiform discharges were seen. INTERPRETATION: This awake EEG can be considered within normal limits. There was no asymmetry seen. No epileptiform discharges were noticed. The absence of epileptiform discharges does not rule out the diagnosis of epilepsy, therefore, clinical correlation is recommended.
--- NOTE | 2016-06-08 14:14 | P.PN ---
Progress Note - Text This note is being dictated for 06/07/2016. Patient is a pleasant 51-year-old female who is being followed by the neurology service for headache and altered mental status. Patient became confused at home and family brought her to the emergency room for further evaluation. Patient was complaining of headache mostly bilateral occipital region. Computed tomography scan of the brain was done which was negative for any acute process. Patient was diagnosed with pneumonia and continues to be on antibiotics for this. Patient states her headache has subsided. She denies any changes in vision or dizziness. At the time of my evaluation, patient is resting comfortably in bed and appears to be in no acute distress. Selected Entries 06/07/16 06/07/16 11:00 15:00 Temperature 97.8 F 97.7 F Pulse Rate [ 106 H 94 Pulse Oximetery ] Respiratory 20 20 Rate Blood Pressure 129/84 116/71 [Left Arm] O2 Sat by Pulse 98 Oximetry Physical exam: General appearance: Patient is a well-developed, female who appears to be in no acute distress. HEENT: Normocephalic, atraumatic, no facial asymmetry is seen. Neck is supple with no masses felt. Cardiovascular: Regular rate and rhythm. Abdomen: Nontender, nondistended. Extremities: Shows no edema or clubbing. Neurological exam: Patient is awake, alert, and oriented 3. Speech and language are normal. Strength is full in all 4 extremities. Sensory exam is normal to light touch in all 4 extremities. No facial asymmetry is seen on cranial nerve testing. No tremors or seizure-like activity is noted. Impression: 1. Recurrent headaches, currently subsided 2. Occipital neuritis bilaterally 3. Altered mental status, resolved 4. Acute toxic and infectious encephalopathy, improved 5. Pneumonia 6. Chronic pain syndrome Recommendation: Patient's altered mental status has resolved. She also denies headache at this time. As you recall, computed tomography scan of the brain was normal. EEG was done and is normal. I did discuss with with the patient the possibility of a greater occipital nerve block which can be done in the outpatient setting should symptoms return. Continue antibiotic therapy for her pneumonia. Continue neurological checks. I will follow with you on an as- needed basis. Please feel free to call with any questions or concerns. I performed an examination of the patient and discussed the management with the [employer]. I have reviewed the [employer] notes and agree with the findings and plan of care.
--- NOTE | 2016-06-08 15:28 | P.PN ---
Subjective This is a very pleasant 51-year-old female patient who was admitted for altered mental status. She did have Xanax into more [place] as the morning of admission and has since had improved mentation. Within the workup in the emergency room a computed tomography scan of the chest was done to rule out pulmonary embolism and there was noted a limited area of infiltrate in the left lung. We were consulted for the same. She had been initially seen and evaluated by Dr. Gutierrez who felt there was very limited infiltrate and the patient has no clinical symptoms of pneumonia. She is seen again today 06/08/2016 in follow-up. She is awake and alert in no acute distress. She denies any worsening shortness of breath, cough or congestion. No chills or night sweats. She is anxious to go home. Objective - Vital Signs Vital signs: Vital Signs Temp 98.3 F 06/08/16 07:00 Pulse 80 06/08/16 11:59 Resp 16 06/08/16 07:00 BP 97/67 06/08/16 07:00 Pulse Ox 92 L 06/08/16 08:01 Intake & Output 06/07/16 06/08/16 06/08/16 18:59 06:59 18:59 Intake Total 800 Balance 800 Weight 43.7 kg Intake: IV 800 Sodium Chloride 0.9% 1, 800 000 ml @ 100 mls/hr IV . Q10H [facility] Rx#:[id number] Other: # Voids 1 - Exam GENERAL EXAM: Alert, active, comfortable in no apparent distress. HEAD: Normocephalic. EYES: Normal reaction of pupils, equal size. NOSE: Clear with pink turbinates. THROAT: No erythema or exudates. NECK: No masses, no JVD. CHEST: No chest wall deformity. LUNGS: Equal air entry with no crackles, wheeze, rhonchi or dullness. CVS: S1 and S2 normal with no audible murmurs, regular rhythm. ABDOMEN: No hepatosplenomegaly, normal bowel sounds, no guarding or rigidity. Extremities: There is no peripheral edema. No clubbing, no cyanosis. Peripheral pulses are intact. - Labs CBC & Chem 7: 06/05/16 14:30 06/05/16 14:30 Labs: Abnormal Lab Results - Last 24 Hours (Table) 06/08/16 Range/Units 01:25 Plasma Lactic Acid [place] 0.6 L (0.7-2.0) mmol/L Assessment and Plan Plan: Impression: #1 Chronic cephalgia with an acute episode of altered mental status. Neurology was consulted. Computed tomography scan of the brain was negative. She does have a history of chronic headache. #2 Acute exacerbation of severe chronic obstructive pulmonary disease. #3 Chronic and ongoing tobacco dependence. #4 Acute hypoxic respiratory failure secondary to her COPD. May require home oxygen. #5 Chronic back pain. #6 Anxiety/depression. Plan: The patient was seen and evaluated by Dr. Gutierrez. She is cleared for discharge from the pulmonary standpoint. She would benefit from a office follow-up including full pulmonary function testing to evaluate the severity of her COPD and make recommendations for her maintenance medications. In the interim she' ll complete her course of antibiotics, prednisone taper and bronchodilators. She is again educated regarding the importance of complete smoking cessation. She is encouraged to call sooner with any recurrence of symptoms or other questions or concerns.
--- NOTE | 2016-06-09 12:31 | DS ---
DATE OF ADMISSION: 06/05/2016 DATE OF DISCHARGE: 06/08/2016 I am covering for Dr. Henning. FINAL DIAGNOSES: 1. Community acquired pneumonia with possible sepsis and change in mental status. Change in mental status is possibly secondary to metabolic encephalopathy secondary to sepsis. 2. Headache. 3. History of migraines. 4. Chronic pain syndrome. 5. Chronic obstructive pulmonary disease. 6. History of nicotine dependence. 7. Occipital neuritis bilaterally. 8. Chronic obstructive pulmonary disease acute exacerbation. DISCHARGE DISPOSITION: The patient will be discharged in stable condition with a guarded prognosis. HISTORY OF PRESENT ILLNESS: An 51-year-old woman with a past medical history of multiple medical problems, being followed by Dr. Marck Henning in the outpatient setting, was admitted with features of community acquired pneumonia as well as sepsis. The patient had a change in mental status with headache. She was also treated with antibiotics. The patient improved significantly. Patient was also seen by Dr. Sanchez as well as Dr. Gutierrez. Care was coordinated. Otherwise, Dr. Gutierrez saw the patient and cleared the patient for discharge. The patient is being discharged in stable condition with the following instructions and adjustment in medications. On exam, vital signs are stable. CARDIAC: S1, S2 muffled. LUNGS: Breath sounds are diminished. ABDOMEN: Soft. NERVOUS SYSTEM: No focal deficits. DIET: Cardiac. ACTIVITY: Limited. FOLLOWUP: 1. Follow up with Dr. Marck Henning in 2 to 3 days. 2. Follow up with Dr. Sanchez as advised. MEDICATIONS: 1. Xanax 1 mg p.o. t.i.d. p.r.n. 2. Ventolin 2 puffs q.i.d. p.r.n. 3. Elavil 100 mg at bedtime. 4. Soma 350 mg p.o. t.i.d. 5. [place] 10 mg every 6 p.r.n. 6. Levaquin 750 p.o. daily. 7. Medrol Dosepak use as directed.
== END 2016-06-08 17:00 | disposition home or self-care (01) | DRG 871 ==
LOC: EC 12:41 → 6SEL 18:00 → 4MS4W 06-07 11:03
PROVIDERS: ADMIT Family Medicine; ATTEND Family Medicine
DX: A41.9 Sepsis, unspecified organism (principal); G92 Toxic encephalopathy; J96.01 Acute respiratory failure with hypoxia; E87.2 Acidosis; J18.9 Pneumonia, unspecified organism; J44.0 Chronic obstructive pulmonary disease with (acute) lower respiratory infection; J44.1 Chronic obstructive pulmonary disease with (acute) exacerbation; M54.81 Occipital neuralgia; G89.4 Chronic pain syndrome; M54.5 Low back pain; J45.909 Unspecified asthma, uncomplicated; G43.909 Migraine, unspecified, not intractable, without status migrainosus; R25.1 Tremor, unspecified; F17.210 Nicotine dependence, cigarettes, uncomplicated; F41.9 Anxiety disorder, unspecified; F32.9 Major depressive disorder, single episode, unspecified; Z88.7 Allergy status to serum and vaccine; Z79.891 Long term (current) use of opiate analgesic; Z79.899 Other long term (current) drug therapy
CPT/HCPCS: 36415; 70450; 71020; 71275; 80053; 80306; 80320; 81001; 81025; 82803; 83605; 83735; 85025; 85610; 87040; 87502; 93005; 94640; 95819; 96361; 96375; 99285

== ENCOUNTER 2017-08-15 10:10 | Inpatient (IN) | payer OTHER ==
[2017-08-15] MEDS ORDERED: ONDANSETRON 4 MG/2 ML VIAL IVP STA (10:46)
[2017-08-15] MEDS ORDERED: SODIUM CHLORIDE 0.9% 1,000 ML IV STA ×2 (10:46)
[2017-08-15 11:33] LABS: Basophils # (A) 0.1 k/uL (0-0.2); Basophils % (A) 0 %; Eosinophils # (A) 0.1 k/uL (0-0.7); Eosinophils % (A) 1 %; HCT 51.6 % (34.0-46.0); HGB 16.7 gm/dL (11.4-16.0); Lymphocytes % (A) 7 %; MCH 31.6 pg (25.0-35.0); MCHC 32.4 g/dL (31.0-37.0); MCV 97.4 fL (80.0-100.0); Monocytes # (A) 0.6 k/uL (0-1.0); Monocytes % (A) 4 %; Neutrophils # (A) 11.5 k/uL (1.3-7.7); Neutrophils % (A) 87 %; Platelet Count 485 k/uL (150-450); RBC 5.29 m/uL (3.80-5.40); WBC 13.3 k/uL (3.8-10.6)
[2017-08-15 11:43] LABS: INR 1.1 (<1.2); Prothrombin Time 10.3 sec (9.0-12.0)
--- NOTE | 2017-08-15 11:50 | XR ---
EXAMINATION TYPE: XR chest 2V DATE OF EXAM: 08/15/2017 COMPARISON: Chest x-ray and CTA chest June 05, 2016. HISTORY: Weakness and shortness of breath. TECHNIQUE: Frontal and lateral views of the chest are obtained. FINDINGS: Multiple overlying EKG leads are present on current study. There is background of fairly mo derate underlying emphysematous change. Superior left lower lobe irregular consolidation on CT is les s well seen on plain films. There is no new focal air space opacity, pleural effusion, or pneumothora x seen. The cardiac silhouette size is within normal limits. The osseous structures redemonstrate slight scoliotic curvature. IMPRESSION: Chronic emphysematous change without new suspicious acute pulmonary process.
--- NOTE | 2017-08-15 11:51 | CT ---
EXAMINATION TYPE: CT brain wo con DATE OF EXAM: 08/15/2017 COMPARISON: 06/05/2016 HISTORY: 52-year-old female Confusion, SOB TECHNIQUE: Examination was done in axial plane without intravenous contrast. Coronal and sagittal r econstructions performed. CT DLP: 1014 mGycm Automated exposure control for dose reduction was used. FINDINGS: Prominent calvarial artifacts are present. Within this limitation, there is no evidence of acute int racranial hemorrhage, acute ischemic changes, mass, mass-effect, or extra-axial fluid collection. Th ere is no effacement of cerebral sulci or basal subarachnoid cisterns. There is no hydrocephalus. T here is no midline shift. Mao-white matter distinction is preserved. Paranasal sinuses and mastoid air cells well pneumatized. Orbits and globes are intact. IMPRESSION: Within the limitations of prominent skull artifacts, no acute intracranial abnormality seen.
[2017-08-15 11:53] LABS: ALT 19 U/L (9-52); AST 18 U/L (14-36); Albumin 4.9 g/dL (3.5-5.0); Alkaline Phosphatase 96 U/L (38-126); Anion Gap 19 mmol/L; Blood Urea Nitrogen 18 mg/dL (7-17); Calcium 11.1 mg/dL (8.4-10.2); Carbon Dioxide 24 mmol/L (22-30); Chloride 101 mmol/L (98-107); Glucose 93 mg/dL (74-99); Potassium 4.8 mmol/L (3.5-5.1); Sodium 144 mmol/L (137-145); Total Protein 8.4 g/dL (6.3-8.2)
[2017-08-15 11:59] LABS: Creatine Kinase 94 U/L (30-135)
[2017-08-15 12:10] LABS: Creatine Kinase MB 2.3 ng/mL (0.0-2.4); Troponin I <0.012 ng/mL (0.000-0.034)
[2017-08-15 12:18] LABS: Appearance,Urine Clear (Clear); Bilirubin,Urine Negative (Negative); Blood,Urine Moderate (Negative); Color,Urine Yellow; Glucose,Urine (UA) Negative (Negative); Ketones,Urine 4+ (Negative); Leukocyte Esterase,Urine Negative (Negative); Mucus,Urine Few /hpf; Nitrite,Urine Negative (Negative); PH, Urine 5.5 (5.0-8.0); Protein,Urine 1+ (Negative); RBC,Urine 5 /hpf (0-5); Specific Gravity,Urine 1.015 (1.001-1.035); Squamous Epithelial Cell,Urine 4 /hpf (0-4); Urobilinogen,Urine <2.0 mg/dL (<2.0); WBC,Urine 1 /hpf (0-5)
[2017-08-15 14:26] LABS: VBG PH 7.34 (7.31-7.41)
--- NOTE | 2017-08-15 14:34 | ED ---
Weakness HPI - General Chief complaint: Weakness Stated complaint: SOB Time Seen by Provider: 08/15/17 10:44 Source: patient Mode of arrival: wheelchair Limitations: no limitations - History of Present Illness Initial comments: Given years old female presents with a confusion, she has a daughter with her daughter said she been sick for last few days she said there was some mild bleeding per vagina she has not been eating well she is short of breath she is confused she is unsteady on her feet she does wear oxygen at home. He has a headache about the chest pain shortness of breath no abdominal pain no frequency urgency dysuria no weakness of upper or lower extremity but the daughter said she been quite unsteady on her feet and not been eating well, review of system is unremarkable otherwise - Related Data Home Medications Medication Instructions Recorded Confirmed ALPRAZolam [Xanax] 1 mg PO TID 06/05/16 08/15/17 Amitriptyline HCl [Elavil] 100 mg PO HS 06/05/16 08/15/17 HYDROcodone/APAP 10-325MG [[place] 1 tab PO Q6H 06/05/16 08/15/17 10-325] Albuterol Inhaler [Ventolin Hfa 2 puff INHALATION RT-Q4H PRN 08/15/17 08/15/17 Inhaler] Ergocalciferol [Vitamin D2] 50,000 unit PO Q7D 08/15/17 08/15/17 Fluticasone/Vilanterol [Breo 1 puff INHALATION RT-DAILY 08/15/17 08/15/17 Ellipta 100-25 Mcg Inhaler] buPROPion HCL [Wellbutrin XL] 150 mg PO DAILY 08/15/17 08/15/17 Allergies Allergy/AdvReac Type Severity Reaction Status Date / Time Influenza Virus Vaccines Allergy Unknown Verified 08/15/17 10:52 Review of Systems ROS Statement: Those systems with pertinent positive or pertinent negative responses have been documented in the HPI. ROS Other: All systems not noted in ROS Statement are negative. Past Medical History Past Medical History: Asthma, COPD, Pneumonia Additional Past Medical History / Comment(s): migraines chronic back pain "sporatic hand tremors-sometimes i just drops things" History of Any Multi-Drug Resistant Organisms: None Reported Past Surgical History: No Surgical Hx Reported Additional Past Surgical History / Comment(s): wisdom teeth extracted Past Anesthesia/Blood Transfusion Reactions: No Reported Reaction Past Psychological History: Anxiety, Depression Smoking Status: Current every day smoker Past Alcohol Use History: None Reported Past Drug Use History: None Reported - Past Family History Mother Family Medical History: Cancer, Hypertension Additional Family Medical History / Comment(s): throat cancer, anxiety, depression Father Family Medical History: Liver Disease Additional Family Medical History / Comment(s): from cirrhosis of the liver wehn pt was 16 years old. General Exam - General Exam Comments Initial Comments: General: The patient is awake , she is confused, she is pleasant but she is cooperative Skin: Skin is warm and dry and no rashes or lesions are noted. Eye: Pupils are equal, round and reactive to light, extra-ocular movements are intact; there is normal conjunctiva bilaterally. Ears, nose, mouth and throat: There are moist mucous membranes and no oral lesions. Neck: The neck is supple, there is no tenderness or JVD. Cardiovascular: There is a regular rate and rhythm. No murmur, rub or gallop is appreciated. Respiratory: To auscultation bilateral, no wheezing no rhonchi no distress respiratory martini noticed Gastrointestinal: Soft, non-distended, non-tender abdomen without masses or organomegaly noted. There is no rebound or guarding present. Bowel sounds are unremarkable. Back: There is no tenderness to palpation in the midline. There is no obvious deformity. Musculoskeletal: Normal ROM, no tenderness, There is no pedal edema. There is no calf tenderness or swelling. No cords were appreciated. Neurological: CN II-XII intact, Cranial nerves III through XII are intact. There are no obvious motor or sensory deficits. Coordination appears grossly intact. Speech is normal. Psychiatric: Cooperative, appropriate mood & affect, normal judgment. Limitations: no limitations Course Vital Signs 08/15/17 08/15/17 10:21 12:21 Temperature 98.5 F Pulse Rate 134 H Respiratory 18 24 Rate Blood Pressure 121/94 O2 Sat by Pulse 98 Oximetry Nichole is reassessed white count is 13.3 INR is unremarkable ABGs are reviewed and they, troponin is negative, his metabolic panel is unremarkable urinalysis is unremarkable surgery head CT, chest x-ray, ABGs are unremarkable, considering her tachycardia and slightly elevated white count and will require and do the blood cultures urine cultures start him on her Rocephin 2 g IV now she be admitted for the confusion she would need to see a neurologist most probably would need MRI of the brain as well and now abdomen discussed that with the Dr. Henning as soon as he calls back EKG Findings - EKG Comments: EKG Findings:: EKG is a sinus tachycardia ventricular rate is 121 [place] interval is 134 QRS duration is 78 QT/QTc is 312/443 review of this EKG does not reveal any ST elevation or ST depression Medical Decision Making - Lab Data Result diagrams: 08/15/17 11:13 08/15/17 11:13 Lab Results 08/15/17 08/15/17 08/15/17 Range/Units 11:13 11:13 11:13 WBC 13.3 H (3.8-10.6) k/uL RBC 5.29 (3.80-5.40) m/uL Hgb 16.7 H (11.4-16.0) gm/dL Hct 51.6 H (34.0-46.0) % MCV 97.4 (80.0-100.0) fL MCH 31.6 (25.0-35.0) pg MCHC 32.4 (31.0-37.0) g/dL RDW 13.0 (11.5-15.5) % Plt Count 485 H (150-450) k/uL Neutrophils % 87 % Lymphocytes % 7 % Monocytes % 4 % Eosinophils % 1 % Basophils % 0 % Neutrophils # 11.5 H (1.3-7.7) k/uL Lymphocytes # 1.0 (1.0-4.8) k/uL Monocytes # 0.6 (0-1.0) k/uL Eosinophils # 0.1 (0-0.7) k/uL Basophils # 0.1 (0-0.2) k/uL PT (9.0-12.0) sec INR (<1.2) APTT (22.0-30.0) sec VBG pH (7.31-7.41) VBG pCO2 (37-51) mmHg VBG HCO3 (24-28) mmol/L Sodium 144 (137-145) mmol/L Potassium 4.8 (3.5-5.1) mmol/L Chloride 101 (98-107) mmol/L Carbon Dioxide 24 (22-30) mmol/L Anion Gap 19 mmol/L BUN 18 H (7-17) mg/dL Creatinine 0.60 (0.52-1.04) mg/dL Est GFR (CKD-EPI)AfAm >90 (>60 ml/min/1.73 sqM) Est GFR (CKD-EPI)NonAf >90 (>60 ml/min/1.73 sqM) Glucose 93 (74-99) mg/dL Plasma Lactic Acid Reilly (0.7-2.0) mmol/L Calcium 11.1 H (8.4-10.2) mg/dL Total Bilirubin 1.0 (0.2-1.3) mg/dL AST 18 (14-36) U/L ALT 19 (9-52) U/L Alkaline Phosphatase 96 (38-126) U/L Total Creatine Kinase 94 (30-135) U/L CK-MB (CK-2) 2.3 (0.0-2.4) ng/mL CK-MB (CK-2) Rel Index 2.4 Troponin I <0.012 (0.000-0.034) ng/mL Total Protein 8.4 H (6.3-8.2) g/dL Albumin 4.9 (3.5-5.0) g/dL Urine Color Urine Appearance (Clear) Urine pH (5.0-8.0) Ur Specific [place] (1.001-1.035) Urine Protein (Negative) Urine Glucose (UA) (Negative) Urine Ketones (Negative) Urine Blood (Negative) Urine Nitrite (Negative) Urine Bilirubin (Negative) Urine Urobilinogen (<2.0) mg/dL Ur Leukocyte Esterase (Negative) Urine RBC (0-5) /hpf Urine WBC (0-5) /hpf Ur Squamous Epith Cells (0-4) /hpf Urine Mucus (None) /hpf Blood Type Blood Type Recheck Antibody Screen Spec Expiration Date 08/15/17 08/15/17 08/15/17 Range/Units 11:13 11:13 11:13 WBC (3.8-10.6) k/uL RBC (3.80-5.40) m/uL Hgb (11.4-16.0) gm/dL Hct (34.0-46.0) % MCV (80.0-100.0) fL MCH (25.0-35.0) pg MCHC (31.0-37.0) g/dL RDW (11.5-15.5) % Plt Count (150-450) k/uL Neutrophils % % Lymphocytes % % Monocytes % % Eosinophils % % Basophils % % Neutrophils # (1.3-7.7) k/uL Lymphocytes # (1.0-4.8) k/uL Monocytes # (0-1.0) k/uL Eosinophils # (0-0.7) k/uL Basophils # (0-0.2) k/uL PT 10.3 (9.0-12.0) sec INR 1.1 (<1.2) APTT 26.0 (22.0-30.0) sec VBG pH (7.31-7.41) VBG pCO2 (37-51) mmHg VBG HCO3 (24-28) mmol/L Sodium (137-145) mmol/L Potassium (3.5-5.1) mmol/L Chloride (98-107) mmol/L Carbon Dioxide (22-30) mmol/L Anion Gap mmol/L BUN (7-17) mg/dL Creatinine (0.52-1.04) mg/dL Est GFR (CKD-EPI)AfAm (>60 ml/min/1.73 sqM) Est GFR (CKD-EPI)NonAf (>60 ml/min/1.73 sqM) Glucose (74-99) mg/dL Plasma Lactic Acid Reilly 1.1 (0.7-2.0) mmol/L Calcium (8.4-10.2) mg/dL Total Bilirubin (0.2-1.3) mg/dL AST (14-36) U/L ALT (9-52) U/L Alkaline Phosphatase (38-126) U/L Total Creatine Kinase (30-135) U/L CK-MB (CK-2) (0.0-2.4) ng/mL CK-MB (CK-2) Rel Index Troponin I (0.000-0.034) ng/mL Total Protein (6.3-8.2) g/dL Albumin (3.5-5.0) g/dL Urine Color Urine Appearance (Clear) Urine pH (5.0-8.0) Ur Specific [place] (1.001-1.035) Urine Protein (Negative) Urine Glucose (UA) (Negative) Urine Ketones (Negative) Urine Blood (Negative) Urine Nitrite (Negative) Urine Bilirubin (Negative) Urine Urobilinogen (<2.0) mg/dL Ur Leukocyte Esterase (Negative) Urine RBC (0-5) /hpf Urine WBC (0-5) /hpf Ur Squamous Epith Cells (0-4) /hpf Urine Mucus (None) /hpf Blood Type O Positive Blood Type Recheck No Antibody Screen NEGATIVE Spec Expiration Date 08/18/2017231208/15/17 08/15/17 Range/Units 12:00 14:10 WBC (3.8-10.6) k/uL RBC (3.80-5.40) m/uL Hgb (11.4-16.0) gm/dL Hct (34.0-46.0) % MCV (80.0-100.0) fL MCH (25.0-35.0) pg MCHC (31.0-37.0) g/dL RDW (11.5-15.5) % Plt Count (150-450) k/uL Neutrophils % % Lymphocytes % % Monocytes % % Eosinophils % % Basophils % % Neutrophils # (1.3-7.7) k/uL Lymphocytes # (1.0-4.8) k/uL Monocytes # (0-1.0) k/uL Eosinophils # (0-0.7) k/uL Basophils # (0-0.2) k/uL PT (9.0-12.0) sec INR (<1.2) APTT (22.0-30.0) sec VBG pH 7.34 (7.31-7.41) VBG pCO2 47 (37-51) mmHg VBG HCO3 24 (24-28) mmol/L Sodium (137-145) mmol/L Potassium (3.5-5.1) mmol/L Chloride (98-107) mmol/L Carbon Dioxide (22-30) mmol/L Anion Gap mmol/L BUN (7-17) mg/dL Creatinine (0.52-1.04) mg/dL Est GFR (CKD-EPI)AfAm (>60 ml/min/1.73 sqM) Est GFR (CKD-EPI)NonAf (>60 ml/min/1.73 sqM) Glucose (74-99) mg/dL Plasma Lactic Acid [place]illy (0.7-2.0) mmol/L Calcium (8.4-10.2) mg/dL Total Bilirubin (0.2-1.3) mg/dL AST (14-36) U/L ALT (9-52) U/L Alkaline Phosphatase (38-126) U/L Total Creatine Kinase (30-135) U/L CK-MB (CK-2) (0.0-2.4) ng/mL CK-MB (CK-2) Rel Index Troponin I (0.000-0.034) ng/mL Total Protein (6.3-8.2) g/dL Albumin (3.5-5.0) g/dL Urine Color Yellow Urine Appearance Clear (Clear) Urine pH 5.5 (5.0-8.0) Ur Specific [place] 1.015 (1.001-1.035) Urine Protein 1+ H (Negative) Urine Glucose (UA) Negative (Negative) Urine Ketones 4+ H (Negative) Urine Blood Moderate H (Negative) Urine Nitrite Negative (Negative) Urine Bilirubin Negative (Negative) Urine Urobilinogen <2.0 (<2.0) mg/dL Ur Leukocyte Esterase Negative (Negative) Urine RBC 5 (0-5) /hpf Urine WBC 1 (0-5) /hpf Ur Squamous Epith Cells 4 (0-4) /hpf Urine Mucus Few H (None) /hpf Blood Type Blood Type Recheck Antibody Screen Spec Expiration Date Critical Care Time Total Critical Care Time: 45 Critical Care Time: see the documentation done prior, CBC, compressive metabolic metabolic panel, troponin, urinalysis, chest x-ray is unremarkable she is very confused head CT is normal considering the tachycardia is slightly elevated white count cultures wheezing discussing the or addressing the possibility of sepsis 2 g of Rocephin be started after cultures were done and she would need to see a neurologist and she be admitted to service of Dr. Marck Casillas Disposition Clinical Impression: Confusion Disposition: ADMITTED IP TO THIS HOSP Condition: Good Referrals: Marck Henning MD [Primary Care Provider] - 1-2 days
[2017-08-15] MEDS ORDERED: cefTRIAXone IN SWFI 2,000 MG/20 ML SYRINGE IVP STA (14:43)
[2017-08-15] MEDS ORDERED: ONDANSETRON 4 MG/2 ML VIAL IVP PRN (14:49)
[2017-08-15] MEDS ORDERED: NALOXONE 0.4 MG/ML 1 ML VIAL IV PRN (14:49)
[2017-08-15] MEDS ORDERED: ALBUTEROL NEBULIZED 2.5 MG/3 ML INHALATION PRN (14:57)
[2017-08-15] MEDS ORDERED: ERGOCALCIFEROL 50,000 UNIT CAP PO SCH (15:00)
[2017-08-15] MEDS ORDERED: SODIUM CHLORIDE 0.9% 500 ML IV ONE (15:01)
[2017-08-15] MEDS ORDERED: SODIUM CHLORIDE 0.9% 1,000 ML IV SCH (15:15)
[2017-08-15] MEDS: ALPRAZolam 1 MG TAB PO SCH ×2 (15:44→22:25)
[2017-08-15] MEDS: HYDROcodone/APAP 10-325MG 1 EACH TAB PO SCH ×2 (15:44→21:12)
[2017-08-15] MEDS ORDERED: SYMBICORT 80-4.5 MCG INHALER INHALATION SCH (20:00)
[2017-08-15] MEDS ORDERED: IPRATROPIUM-ALBUTEROL 3 ML NEB INHALATION PRN (20:05)
--- NOTE | 2017-08-15 20:29 | P.CNNES ---
History of Present Illness Consult date: 08/15/17 Reason for Consult: Patient admitted for confusion and weakness. History of Present Illness: This patient is a 52-year-old right-handed white female who apparently lives in a apartment with a roommate. Patient apparently was not feeling well for 2-3 days and was advised by her daughter to come to the hospital for further evaluation. She had not been eating well at home for several days. Patient states that she was recently seen by her primary care physician's office Dr. Marck Henning and it was decided to consider weaning her off of Xanax that she has been on this medication for over 25 years. They suggested that she start on Wellbutrin for treatment of underlying depression and panic attacks. She apparently was started on Wellbutrin 150 mg once a day. It was unclear by the daughter whether she may have not taken her Wellbutrin medications properly as when she went to check on her yesterday she was very confused and disoriented. She was very unsteady with her walking and had a very peculiar gait. When questioned about her gait the patient states that she was confused and was trying to her roommate's son usually walks and it is still unclear why she was doing this at the time. Due to these changes in her mental status she was brought into the emergency room and was seen in the ER today by Dr. Lino. She was sent for a computed tomography scan of the brain which was reported negative for any acute intracranial abnormality. Patient states that she has a history of anxiety disorder and panic attacks. It is still unclear as to whether she was taking her Wellbutrin medications on a regular basis or head taken excessive number of pills. Her clinical history suggesting acute metabolic encephalopathy for her acute confusion. We have suggested that she use a pill dispenser on a regular basis so to avoid improper medication use. Patient was seen in the ER by Dr. Lino. She was started on Rocephin by him for possible sepsis. His unclear why she has been treated for sepsis as her laboratory tests are all within normal limits. She was also noted to have slight tachycardia which may be related to her panic attacks. We will strongly recommend a psychiatry consultation for this patient. Her neurological examination at this time is nonfocal. We will await further recommendations from other specialists regarding this patient's overall underlying anxiety disorder and depression. We reviewed the results of the CAT scan today with the patient in detail. There is no acute findings. Neurological examination also failed to reveal any focal weakness. She does seem to be more appropriate in terms of answering questions today but still has some mild confusion. Hopefully this should improve with proper dosing of her medications. Neurology is now been consulted for further evaluation and recommendations. Review of Systems Constitutional: Denies chills, Denies fever Eyes: denies blurred vision, denies pain Ears, nose, mouth and throat: Denies headache, Denies sore throat Cardiovascular: Denies chest pain, Denies shortness of breath Respiratory: Denies cough Gastrointestinal: Denies abdominal pain, Denies diarrhea, Denies nausea, Denies vomiting Genitourinary: Denies dysuria, Denies hematuria Musculoskeletal: Denies myalgias Integumentary: Denies pruritus, Denies rash Neurological: Reports change in mentation, Reports confusion, Reports gait dysfunction, Reports memory loss, Denies numbness, Denies weakness Psychiatric: Reports change in appetite, Reports change in sleep habits, Reports difficulty concentrating, Reports sleep disturbances, Denies anxiety, Denies depression Endocrine: Denies fatigue, Denies weight change Past Medical History Past Medical History: Asthma, COPD, Pneumonia Additional Past Medical History / Comment(s): migraines chronic back pain "sporatic hand tremors-sometimes i just drops things". Recent vaginal bleed- no period for last 2 years. History of Any Multi-Drug Resistant Organisms: None Reported Past Surgical History: No Surgical Hx Reported Additional Past Surgical History / Comment(s): wisdom teeth extracted Past Anesthesia/Blood Transfusion Reactions: No Reported Reaction Past Psychological History: Anxiety, Depression Smoking Status: Current every day smoker Past Alcohol Use History: None Reported Additional Past Alcohol Use History / Comment(s): started smoking at age 14 was smoking 1-1.5 ppd now down to 8 cig per day trying to quit. Past Drug Use History: None Reported - Past Family History Mother Family Medical History: Cancer, Hypertension Additional Family Medical History / Comment(s): throat cancer, anxiety, depression Father Family Medical History: Liver Disease Additional Family Medical History / Comment(s): from cirrhosis of the liver when pt was 16 years old. Medications and Allergies Home Medications Medication Instructions Recorded Confirmed Type ALPRAZolam [Xanax] 1 mg PO TID 06/05/16 08/15/17 History Amitriptyline HCl [Elavil] 100 mg PO HS 06/05/16 08/15/17 History HYDROcodone/APAP 10-325MG [[place] 1 tab PO Q6H 06/05/16 08/15/17 History 10-325] Albuterol Inhaler [Ventolin Hfa 2 puff INHALATION RT-Q4H PRN 08/15/17 08/15/17 History Inhaler] Ergocalciferol [Vitamin D2] 50,000 unit PO Q7D 08/15/17 08/15/17 History Fluticasone/Vilanterol [Breo 1 puff INHALATION RT-DAILY 08/15/17 08/15/17 History Ellipta 100-25 Mcg Inhaler] buPROPion HCL [Wellbutrin XL] 150 mg PO DAILY 08/15/17 08/15/17 History Allergies Allergy/AdvReac Type Severity Reaction Status Date / Time Influenza Virus Vaccines Allergy Unknown Verified 08/15/17 10:52 Physical Examination - Vital Signs Vital Signs: Vital Signs Temp Pulse Pulse Resp BP BP Pulse Ox 08/15/17 16:53 97.7 F 123 H 20 148/89 97 08/15/17 16:00 97.7 F 123 H 20 148/89 97 08/15/17 14:46 112 H 16 148/84 100 08/15/17 13:15 112 H 16 133/81 96 08/15/17 12:21 24 08/15/17 12:00 110 H 16 152/98 99 08/15/17 10:21 98.5 F 134 H 18 121/94 98 Intake and Output 08/15/17 08/15/17 08/15/17 06:59 14:59 22:59 Intake Total 1300 Output Total 300 Balance 1000 Intake: Intake, IV Titration 1300 Amount Sodium Chloride 0.9% 1, 300 000 ml @ 100 mls/hr IV . Q10H ERIC Rx#:[id number] Sodium Chloride 0.9% 500 1000 ml @ 999 mls/hr IV .Q31M ONE Rx#:[id number] Output: Urine 300 Other: Voiding Method Toilet # Voids 1 Weight 38.555 kg 38.555 kg - Constitutional General appearance: average body habitus, cooperative - EENT EENT: PERRL, mucous membranes moist - Respiratory Respiratory: lungs clear, normal breath sounds - Cardiovascular Cardiovascular: regular rate, normal S1, normal S2 Extremities: no peripheral edema bilaterally - Gastrointestinal Gastrointestinal: normoactive bowel sounds - Integumentary Integumentary: normal - Neurologic Cranial nerve examination: PERRL, EOMI, VFF, V1/V2/V3 grossly intact, face symmetric, intact gag reflex, intact corneal reflex, normal palatal elevation Speech examination: intact Sensorimotor examination: intact Motor examination - right side: 4/5: biceps, triceps, wrist flexion, wrist extension, plate and weld inspector, hip flexors, knee extensors, dorsiflexion, toe extension (EHL) , plantarflexion Motor examination - left side: 4/5: biceps, triceps, wrist flexion, wrist extension, plate and weld inspector, hip flexors, knee extensors, dorsiflexion, toe extension (EHL) , plantarflexion Detailed sensory examination: intact Reflex and gait examination: intact Reflexes: 1+: ankle, bicep, knee, tricep - Musculoskeletal Musculoskeletal: no pain - Psychiatric Psychiatric: mood/affect appropriate, cooperative Results - Laboratory Findings CBC and BMP: 08/15/17 11:13 08/15/17 11:13 Abnormal Lab Findings: Abnormal Labs 08/15/17 08/15/17 08/15/17 11:13 11:13 12:00 WBC 13.3 H Hgb 16.7 H Hct 51.6 H Plt Count 485 H Neutrophils # 11.5 H BUN 18 H Calcium 11.1 H Total Protein 8.4 H Urine Protein 1+ H Urine Ketones 4+ H Urine Blood Moderate H Urine Mucus Few H Assessment and Plan (1) Acute encephalopathy Current Visit: Yes Status: Acute Code(s): G93.40 - ENCEPHALOPATHY, UNSPECIFIED SNOMED Code(s): 58017782 (2) Depression Current Visit: Yes Status: Acute Code(s): F32.9 - MAJOR DEPRESSIVE DISORDER , SINGLE EPISODE, UNSPECIFIED SNOMED Code(s): 19788182 (3) Panic attacks Current Visit: Yes Status: Acute Code(s): F41.0 - PANIC DISORDER [EPISODIC PAROXYSMAL ANXIETY] SNOMED Code(s): 561657070 Plan: This patient is a 52-year-old female admitted with acute confusion and anxiety and panic attacks. Patient apparently was noted by her daughter is having change in mental status and confusion over the last few days at home. She lives in a apartment with a roommate. Apparently she was quite confused today and this was the reason for bringing her to the hospital for further evaluation. She has not been eating properly for several days. Her primary care physician started her on Wellbutrin and suggested that she consider weaning off of Xanax. Apparently she is taking both medications at this time. It is unclear whether she may have taken an excessive amount Wellbutrin as the pill count did not match her recent prescription. Her neurological exam findings at this time are nonfocal. Her clinical history 70 suggesting acute metabolic encephalopathy as a cause of her confusion. Computed tomography scan of the brain was negative for any acute changes. Given her underlying depression and anxiety disorder was strongly recommend a psychiatry consultation for this patient. Doubt that she is septic at this time but we will wait for the laboratory follow-up testing to be done. Overall prognosis at this time remains very guarded. Case was discussed today bedside with the patient as well as her son and daughter. All their questions were answered. They're aware of her neurological findings and current treatment plan. They're in full agreement with our current recommendations. Her overall prognosis at this time remains guarded. Time with Patient: Greater than 30
--- NOTE | 2017-08-15 20:36 | HP ---
HISTORY AND PHYSICAL DATE OF SERVICE: 08/15/2017 I am covering for Dr. Henning. CHIEF COMPLAINTS: Confusion, shortness of breath and weakness. HISTORY OF PRESENT ILLNESS: This 52-year-old woman with a past medical history of multiple medical problems, history of asthma, COPD, pneumonia, anxiety, depression being followed by Dr. Marck Henning in the outpatient setting, continues to smoke. Patient apparently got a new place and apparently oxygen is not set up there. This morning the patient was noted to have confusion by the family, was taken to [facility] and admitted for further evaluation and treatment. Mild bleeding per vagina was also noted. There is no history of any fever, rigors or chills. The patient is unable to remember exactly what happened. Apparently the patient is also on multiple antidepressant medications as well. PAST MEDICAL HISTORY: Asthma, COPD, history pneumonia, history of migraine, DJD. MEDICATIONS: Prior to admission: 1. Wellbutrin XR 150 mg p.o. daily. 2. Hope 10 mg q.6h p.r.n. 3. Breo Ellipta 100/25 mg p.o. daily. 4. Vitamin D3 2000 daily. 5. Proventil HFA 2 puffs q.4h p.r.n. 6. Elavil 100 mg q.h.s. 7. Xanax 0.1 mg t.i.d. ALLERGIES: INFLUENZA VACCINE. FAMILY HISTORY: History of cancer, hypertension, throat cancer, anxiety, depression. SOCIAL HISTORY: Smoking and no history of alcohol intake. REVIEW OF SYSTEMS: ENT: No diminished hearing or vision. CARDIOVASCULAR: As mentioned. RESPIRATORY: As mentioned. GI: No nausea. : No dysuria. NERVOUS SYSTEM: As mentioned earlier. ALLERGY/IMMUNOLOGY: No asthma or hayfever. MUSCULOSKELETAL: As mentioned earlier. HEMATOLOGY/ONCOLOGY: No history of anemia. ENDOCRINE: As mentioned earlier. CONSTITUTIONAL: As mentioned earlier. PHYSICAL EXAM: Patient is alert, oriented x3. Pulse is 123, blood pressure 140/89, respiration 20, temperature 97.7, pulse ox 97% on room air. HEENT: Conjunctivae normal. Oral mucosa moist. Neck is no jugular venous distention. No carotid bruit. No lymph node enlargement. CARDIOVASCULAR: S1, S2. No S3, no S4. RESPIRATORY: Breath sounds diminished in the bases. Bilateral scattered rhonchi and expiratory wheezing and crackles. ABDOMEN: Soft, nontender. No mass palpable. LEGS: No edema, no swelling. NERVOUS SYSTEM: Higher functions as mentioned earlier. Moves all four limbs. No focal motor deficits. LYMPHATICS: No lymphadenopathy in the neck, axillae, groin. SKIN: No ulcer, rash, bleeding. LABS: WBC 13.2, hemoglobin 16.7. BUN is 18, calcium is 11.1. UA noted. ASSESSMENT: 1. Chronic obstructive pulmonary disease acute exacerbation with acute purulent tracheobronchitis. 2. Change in mental status, confusion, possible metabolic encephalopathy, possibly secondary to hypoxia or medication induced. 3. Hypercalcemia. 4. Increased WBC. 5. History of asthma, chronic obstructive pulmonary disease. 6. History pneumonia. 7. History of migraine. 8. History of degenerative joint disease. 9. Anxiety and depression. 10.History of continued ongoing nicotine dependence. 11.FULL CODE. RECOMMENDATIONS AND DISCUSSION: In this 52-year-old woman who presented with multiple complex medical issues, will monitor the patient closely. Continue the current management and symptomatic treatment. Otherwise at this time I recommend resume the home medications and I would also recommend neurology and pulmonology consultations, intensive bronchodilator treatment and smoking cessation advised. DVT prophylaxis. Prognosis is guarded because of multiple complex medical issues. See orders for details. Further recommendations to follow. Copy of dictation forwarded to Dr. Marck Henning who is the primary physician. See orders for details. MMODL / IJN: [id number] /
[2017-08-15] MEDS: methylPREDNISolone SOD SUCCI 125 MG/2 ML VIAL IV SCH (21:02)
[2017-08-15] MEDS: AMITRIPTYLINE HCL 50 MG TAB PO SCH (21:02)
[2017-08-15] MEDS: HEPARIN SODIUM,PORCINE 5,000 UNIT/ML 1 ML VIAL SQ SCH (21:02)
[2017-08-15] MEDS: NICOTINE 14MG/24HR PATCH TRANSDERM SCH (21:02)
[2017-08-15 21:38] LABS: Glucose,Whole Blood 108 mg/dL (75-99)
[2017-08-15] MEDS: INSULIN ASPART 100 UNIT/ML 1 ML 10 ML VIAL SQ SCH (22:25)
[2017-08-16] MEDS: methylPREDNISolone SOD SUCCI 125 MG/2 ML VIAL IV SCH ×3 (01:12→12:12)
[2017-08-16 03:32] LABS: Hemoglobin A1C 5.2 % (4.0-6.0)
[2017-08-16] MEDS: HYDROcodone/APAP 10-325MG 1 EACH TAB PO SCH ×4 (03:38→20:03)
[2017-08-16 05:50] LABS: Glucose,Whole Blood 132 mg/dL (75-99)
[2017-08-16] MEDS: PANTOPRAZOLE 40 MG TABLET PO SCH (07:04)
[2017-08-16] MEDS: INSULIN ASPART 100 UNIT/ML 1 ML 10 ML VIAL SQ SCH ×4 (07:05→22:10)
[2017-08-16 07:34] LABS: Basophils % (A) 0 %; Eosinophils % (A) 0 %; HCT 40.5 % (34.0-46.0); Lymphocytes # (A) 0.6 k/uL (1.0-4.8); Lymphocytes % (A) 13 %; MCH 32.6 pg (25.0-35.0); MCHC 32.9 g/dL (31.0-37.0); MCV 99.1 fL (80.0-100.0); Mean Platelet Volume 6.8; Monocytes # (A) 0.1 k/uL (0-1.0); Monocytes % (A) 2 %; Neutrophils # (A) 4.2 k/uL (1.3-7.7); Neutrophils % (A) 85 %; Platelet Count 377 k/uL (150-450); RBC 4.09 m/uL (3.80-5.40); WBC 4.9 k/uL (3.8-10.6)
[2017-08-16 07:38] LABS: HGB 13.3 gm/dL (11.4-16.0)
[2017-08-16] MEDS: buPROPion XL 150 MG TAB.ER.24H PO SCH (07:48)
[2017-08-16 07:49] LABS: Anion Gap 8 mmol/L; Blood Urea Nitrogen 11 mg/dL (7-17); Calcium 9.1 mg/dL (8.4-10.2); Carbon Dioxide 26 mmol/L (22-30); Chloride 105 mmol/L (98-107); Glucose 144 mg/dL (74-99); Potassium 4.3 mmol/L (3.5-5.1); Sodium 139 mmol/L (137-145)
[2017-08-16] MEDS: HEPARIN SODIUM,PORCINE 5,000 UNIT/ML 1 ML VIAL SQ SCH ×2 (07:50→20:04)
[2017-08-16] MEDS: ALPRAZolam 1 MG TAB PO SCH ×3 (07:50→22:11)
[2017-08-16] MEDS: NICOTINE 14MG/24HR PATCH TRANSDERM SCH (07:51)
[2017-08-16] MEDS: IPRATROPIUM-ALBUTEROL 3 ML NEB INHALATION SCH ×5 (08:12→19:24)
[2017-08-16] MEDS: SYMBICORT 160-4.5 MCG INHALER INHALATION SCH ×2 (08:13→19:24)
[2017-08-16 11:46] LABS: Glucose,Whole Blood 206 mg/dL (75-99)
--- NOTE | 2017-08-16 12:05 | CDI ---
Last Revision, April 2017 Documentation Clarification Form Date: 08/16/17 1201 From: Amber Man RN, CCDS Admit Date: 08/15/2017 2:49:00 PM Patient Name: Shy Avendaño Visit Number: [id number] ATTENTION: The Clinical Documentation Specialists (CDI) and [facility] Coding Staff appreciate your assistance in clarifying documentation. Please respond to the clarification below the line at the bottom and electronically sign. The CDI & [facility] Coding staff will review the response and follow-up if needed. Please note: Queries are made part of the Legal Health Record. If you have any questions, please contact the author of this message via ITS. Dr. Conchita Acevedo The patient presented with the following respiratory symptoms: increased SOB History/Risk Factors: H&P: "continues to smoke. Patient apparently got a new place and apparently oxygen is not set up there." Clinical Indicators: 08/15 H&P: "Chronic obstructive pulmonary disease acute exacerbation with acute purulent tracheobronchitis. Change in mental status, confusion, possible metabolic encephalopathy, possibly secondary to hypoxia or medication induced. 08/15 EC Note: "she does wear oxygen at home." Vital signs: Temp 98.5, HR 134, RR 18, B/P 121/94, Spo2 98% ra Lung/Breathing assessment: RESPIRATORY: "Breath sounds diminished in the bases. Bilateral scattered rhonchi and expiratory wheezing and crackles." VCBG: pH 7.34 pCO2 47 pHCO3 24 Lactate 1.1 Treatment: Breathing TX: Duoneb QID & PRN, Symbicort 2 puffs BID Continuous Pulse ox: per unit protocol O2: 2L NC In your professional opinion, can you please clarify if these findings signify one of the following conditions? Acuity Chronic Specificity: Respiratory Failure, further specify (if known): With hypercapnia? With hypoxia? Respiratory Distress Other Diagnosis, please specify Unable to determine Please continue to document in your progress notes and discharge summary in order to capture severity of illness and risk of mortality. Include clinical findings that support your diagnosis. Chronic Specificity: chronic Respiratory Failure wiith hypoxia MTDD
[2017-08-16 12:28] VITALS: BMI 16.6
--- NOTE | 2017-08-16 14:56 | P.CNPUL ---
History of Present Illness Consult date: 08/16/17 Reason for consult: COPD History of present illness: A 52-year-old female patient known history of COPD, utilize oxygen on and off at home, was currently living with a roommate. The patient came into the hospital because of altered mentation, confusion, increased weakness. She has chronic dyspnea in addition related to her COPD. Based on the reported history , the patient was being evaluated by the nurse practitioner at Dr. Marck Henning' s office. The patient has been chronically maintained on Xanax for anxiety. She has been taking the medication for more than 25 years. An attempt was made to add Wellbutrin in things patient gradually of Xanax. As this being done, the patient became confused, unable to concentrate, somewhat lethargic and weak. For that reason she came into the hospital for further investigation. She was seen by neurology and she is in the process of being seen by psychiatry. CAT scan of the brain was negative. No fever. No chills. No focal neurological deficits. No seizure activity. No loss in the urine or bowel activity. No headache. No neck stiffness. She is currently back to her normal mentation. In terms of her breathing, she is known to have COPD and she has a chronic smoker smoking between 4-5 cigarettes a day. She is a maintained on Breo Ellipta outpatient basis once a day. No cough. No sputum production. No pleurisy. No other new complaints otherwise for now. Her chest x-ray is also clear. Review of Systems Constitutional: Denies chills, Denies fever Eyes: denies blurred vision, denies pain Ears, nose, mouth and throat: Denies headache, Denies sore throat Cardiovascular: Denies chest pain, Denies shortness of breath Respiratory: Denies cough, the patient has chronic exertional dyspnea. Gastrointestinal: Denies abdominal pain, Denies diarrhea, Denies nausea, Denies vomiting Genitourinary: Denies dysuria, Denies hematuria Musculoskeletal: Denies myalgias Integumentary: Denies pruritus, Denies rash Neurological: Reports change in mentation, Reports confusion, Reports gait dysfunction, Reports memory loss, Denies numbness, Denies weakness Psychiatric: Reports change in appetite, Reports change in sleep habits, Reports difficulty concentrating, Reports sleep disturbances, Denies anxiety, Denies depression Endocrine: Denies fatigue, Denies weight change Past Medical History Past Medical History: COPD Additional Past Medical History / Comment(s): COPD, migraines, chronic back pain , chronic anxiety maintained on benzodiazepines on a long-term basis. History of Any Multi-Drug Resistant Organisms: None Reported Past Surgical History: No Surgical Hx Reported Additional Past Surgical History / Comment(s): wisdom teeth extracted Past Anesthesia/Blood Transfusion Reactions: No Reported Reaction Past Psychological History: Anxiety, Depression Smoking Status: Current every day smoker Past Alcohol Use History: None Reported Additional Past Alcohol Use History / Comment(s): started smoking at age 14 was smoking 1-1.5 ppd now down to 8 cig per day trying to quit. Past Drug Use History: None Reported - Past Family History Mother Family Medical History: Cancer, Hypertension Additional Family Medical History / Comment(s): throat cancer, anxiety, depression Father Family Medical History: Liver Disease Additional Family Medical History / Comment(s): from cirrhosis of the liver when pt was 16 years old. Medications and Allergies Home Medications Medication Instructions Recorded Confirmed Type ALPRAZolam [Xanax] 1 mg PO TID 06/05/16 08/15/17 History Amitriptyline HCl [Elavil] 100 mg PO HS 06/05/16 08/15/17 History HYDROcodone/APAP 10-325MG [[place] 1 tab PO Q6H 06/05/16 08/15/17 History 10-325] Albuterol Inhaler [Ventolin Hfa 2 puff INHALATION RT-Q4H PRN 08/15/17 08/15/17 History Inhaler] Ergocalciferol [Vitamin D2 50,000 unit PO Q7D 08/15/17 08/15/17 History (DRISDOL)] Fluticasone/Vilanterol [Breo 1 puff INHALATION RT-DAILY 08/15/17 08/15/17 History Ellipta 100-25 Mcg Inhaler] buPROPion HCL [Wellbutrin XL] 150 mg PO DAILY 08/15/17 08/15/17 History Nicotine 14Mg/24Hr Patch [Habitrol] 1 patch TRANSDERM DAILY #30 patch 08/16/17 Rx Pantoprazole [Protonix] 40 mg PO AC-BRKFST #30 tablet. 08/16/17 Rx predniSONE 10 mg PO DIRECTED #30 tab 03/30/18 Rx Allergies Allergy/AdvReac Type Severity Reaction Status Date / Time Influenza Virus Vaccines Allergy Unknown Verified 08/15/17 10:52 Physical Exam Vitals: Vital Signs Temp Pulse Pulse Resp BP Pulse Ox 08/16/17 12:44 96 08/16/17 12:36 96 08/16/17 11:42 103 H 18 08/16/17 11:41 97.0 F L 103 H 18 119/75 95 08/16/17 08:26 100 08/16/17 08:15 96 95 08/16/17 07:45 99 18 08/16/17 07:44 97.3 F L 99 18 116/80 95 08/16/17 04:00 98 17 08/16/17 03:46 97.5 F L 98 17 120/84 92 L 08/16/17 00:00 97 F L 90 18 106/72 96 08/15/17 21:23 108 H 08/15/17 21:13 104 H 98 08/15/17 20:00 98.0 F 110 H 19 131/91 98 08/15/17 16:53 97.7 F 123 H 20 148/89 97 08/15/17 16:00 97.7 F 123 H 20 148/89 97 Intake and Output 08/15/17 08/16/17 08/16/17 22:59 06:59 14:59 Intake Total 1540 200 360 Output Total 300 300 Balance 1240 200 60 Intake: Intake, IV Titration 1300 Amount Sodium Chloride 0.9% 1, 300 000 ml @ 100 mls/hr IV . Q10H [facility] Rx#:[id number] Sodium Chloride 0.9% 500 1000 ml @ 999 mls/hr IV .Q31M ONE Rx#:[id number] Oral 240 200 360 Output: Urine 300 300 Other: Voiding Method Toilet Toilet Toilet # Voids 1 1 2 Weight 38.555 kg 41.2 kg 41.2 kg - Constitutional General appearance: average body habitus, cooperative - EENT EENT: PERRL, mucous membranes moist - Respiratory Respiratory: lungs clear, and breath sounds are diminished and there is some few scattered expiratory wheezes heard throughout the lung cl[place] bilaterally. - Cardiovascular Cardiovascular: regular rate, normal S1, normal S2 Extremities: no peripheral edema bilaterally - Gastrointestinal Gastrointestinal: normoactive bowel sounds - Integumentary Integumentary: normal - Neurologic Neurologic exam is nonfocal. No facial asymmetry. No altered mentation at time of my evaluation. She has adequate motor function in all 4 extremities. - Musculoskeletal Musculoskeletal: no pain - Psychiatric Psychiatric: mood/affect appropriate, cooperative Results - Laboratory Findings CBC and BMP: 08/16/17 06:42 08/16/17 06:42 PT/INR, D-dimer PT 10.3 sec (9.0-12.0) 08/15/17 11:13 INR 1.1 (<1.2) 08/15/17 11:13 Abnormal lab findings: Abnormal Labs 08/15/17 08/15/17 08/15/17 11:13 11:13 12:00 WBC 13.3 H Hgb 16.7 H Hct 51.6 H Plt Count 485 H Neutrophils # 11.5 H Lymphocytes # BUN 18 H Creatinine Glucose POC Glucose (mg/dL) Calcium 11.1 H Total Protein 8.4 H Urine Protein 1+ H Urine Ketones 4+ H Urine Blood Moderate H Urine Mucus Few H 08/15/17 08/16/17 08/16/17 21:36 05:47 06:42 WBC Hgb Hct Plt Count Neutrophils # Lymphocytes # 0.6 L BUN Creatinine Glucose POC Glucose (mg/dL) 108 H 132 H Calcium Total Protein Urine Protein Urine Ketones Urine Blood Urine Mucus 08/16/17 08/16/17 06:42 11:34 WBC Hgb Hct Plt Count Neutrophils # Lymphocytes # BUN Creatinine 0.50 L Glucose 144 H POC Glucose (mg/dL) 206 H Calcium Total Protein Urine Protein Urine Ketones Urine Blood Urine Mucus - Diagnostic Findings Chest x-ray: image reviewed Assessment and Plan Plan: 1 COPD, currently inactive in stable, maintained on Breo Ellipta on outpatient basis and the patient has been stable. She is a chronic smoker and smoking cessation counseling was performed. We'll take the patient off the IV Solu Medrol and started on a prednisone burst taper and this will be a short taper to further optimize her breathing. 2 altered mentation, probably side effect of the medication versus benzodiazepine withdrawal 3 chronic anxiety/panic attacks 4 chronic depression 5 migraines Plan Chest x-ray was reviewed. COPD stable. Encourage use of oxygen to maintain a saturation above 90% if needed. Outpatient maintenance inhalers with Breo Ellipta. Neurology to follow-up in the altered mentation and secondary to made recommendations on use of anxiolytic/antidepressant medication. Taper steroids. Outpatient function tests.
[2017-08-16 17:02] LABS: Glucose,Whole Blood 155 mg/dL (75-99)
--- NOTE | 2017-08-16 18:48 | P.PN ---
Subjective Progress Note Date: 08/16/17 This patient is a 52-year-old female was seen yesterday for evaluation of altered mental status. Soon after admission she was found that recently she had medication changes performed by her primary care physician. She has been on Xanax chronically for the past 25 years for treatment of anxiety disorder. Her primary care physician about a week ago decided to take measures to try and wean her off of Xanax and started her on Wellbutrin. She had taken about 5 doses of Wellbutrin and showed signs of increased confusion and disorientation with lethargy. She was admitted to hospital and was seen in neurology consultation yesterday. CAT scan of the brain was negative for any acute changes. Clinical history suggests an acute metabolic encephalopathy possibly due to drug drug interactions. It is recommended she be seen by psychiatry for further adjustment of her antidepressant medications as well as anxiety disorder. Patient is doing much better today. She is able to answer all questions appropriately. She was seen by pulmonary medicine who have cleared her for COPD. She does not appear to show any acute changes at this time. She was advised smoking cessation counseling as she is a chronic smoker. She does continue to show signs of better mentation today as compared to yesterday. We will continue to follow her progress closely. Her COPD remained stable as per pulmonary medicine. We will await further recommendations from psychiatry regarding her home medications. Her overall prognosis at this time remains fair. Objective - Vital Signs Vital signs: Vital Signs Temp 97.6 F 08/16/17 15:53 Pulse 94 08/16/17 16:00 Resp 20 08/16/17 15:53 BP 89/62 08/16/17 15:53 Pulse Ox 98 08/16/17 15:53 Intake & Output 08/15/17 08/16/17 08/16/17 18:59 06:59 18:59 Intake Total 1389 921 6733 Output Total 300 700 Balance 1240 200 380 Weight 38.555 kg 41.2 kg 41.2 kg Intake: Intake, IV Titration 1300 Amount Sodium Chloride 0.9% 1, 300 000 ml @ 100 mls/hr IV . Q10H [facility] Rx#:[id number] Sodium Chloride 0.9% 500 1000 ml @ 999 mls/hr IV .Q31M ONE Rx#:[id number] Oral 244 [id number] Output: Urine 300 700 Other: Voiding Method Toilet Toilet Toilet # Voids 1 1 2 - Exam Physical examination: PHYSICAL EXAMINATION: Patient is resting comfortably in bed. VITAL SIGNS: Blood pressure is [90/62]. Heart rate is [93]. Respiration is [20] . Temperature is [97.7]. HEENT: Head is atraumatic, neck is supple, there were no carotid bruits. CHEST: Lungs are clear to auscultation and percussion. CARDIAC: S1, S2 normal rate and rhythm. There is no murmur. ABDOMEN: Soft and nontender. Bowel sounds are present. EXTREMITIES: There is no pedal edema. Peripheral pulses are present. Neurological examination: Patient has a nonfocal neurological examination today. - Labs CBC & Chem 7: 08/16/17 06:42 08/16/17 06:42 Labs: Abnormal Lab Results - Last 24 Hours (Table) 08/15/17 08/16/17 08/16/17 Range/Units 21:36 05:47 06:42 Lymphocytes # 0.6 L (1.0-4.8) k/uL Creatinine (0.52-1.04) mg/dL Glucose (74-99) mg/dL POC Glucose (mg/dL) 108 H 132 H (75-99) mg/dL 08/16/17 08/16/17 08/16/17 Range/Units 06:42 11:34 16:37 Lymphocytes # (1.0-4.8) k/uL Creatinine 0.50 L (0.52-1.04) mg/dL Glucose 144 H (74-99) mg/dL POC Glucose (mg/dL) 206 H 155 H (75-99) mg/dL Microbiology - Last 24 Hours (Table) 08/15/17 11:03 Blood Culture - Preliminary Blood No Growth after 24 hours 08/15/17 12:00 Urine Culture - Preliminary Urine,Voided Assessment and Plan (1) Acute encephalopathy Current Visit: Yes Status: Acute Code(s): G93.40 - ENCEPHALOPATHY, UNSPECIFIED SNOMED Code(s): 73309535 (2) Depression Current Visit: Yes Status: Acute Code(s): F32.9 - MAJOR DEPRESSIVE DISORDER , SINGLE EPISODE, UNSPECIFIED SNOMED Code(s): 03031236 (3) Panic attacks Current Visit: Yes Status: Acute Code(s): F41.0 - PANIC DISORDER [EPISODIC PAROXYSMAL ANXIETY] SNOMED Code(s): 490648878 Plan: This patient is a 52-year-old female being evaluated for altered mental status. She was admitted yesterday and was seen in urology consultation. Her neurological exam findings suggested possibility of metabolic encephalopathy possibly from drug drug interactions with several of her known antidepressant medications. Psychiatry has been consulted and we are waiting the recommendations. Her neurological examination remains nonfocal. She underwent computed tomography scan of the brain which is negative. She is a chronic smoker and she has been recommended to consider a smoke cessation program. Her COPD is stable at this time. Neurologically her exam is nonfocal. We will continue to await further recommendations from psychiatry regarding her history of anxiety disorder and depression. Her medications may need adjustments. We will continue to monitor progress closely during this admission. Her overall prognosis remains guarded.
[2017-08-16] MEDS: AMITRIPTYLINE HCL 50 MG TAB PO SCH (20:03)
[2017-08-16 21:05] LABS: Glucose,Whole Blood 187 mg/dL (75-99)
[2017-08-17 04:40] VITALS: RESP 18
[2017-08-17] MEDS: HYDROcodone/APAP 10-325MG 1 EACH TAB PO SCH ×3 (04:45→14:10)
[2017-08-17 06:29] LABS: Glucose,Whole Blood 84 mg/dL (75-99)
[2017-08-17] MEDS: INSULIN ASPART 100 UNIT/ML 1 ML 10 ML VIAL SQ SCH ×3 (06:46→17:30)
[2017-08-17] MEDS: PANTOPRAZOLE 40 MG TABLET PO SCH (06:47)
[2017-08-17] MEDS: buPROPion XL 150 MG TAB.ER.24H PO SCH ×2 (07:36→07:41)
[2017-08-17] MEDS: HEPARIN SODIUM,PORCINE 5,000 UNIT/ML 1 ML VIAL SQ SCH (07:36)
[2017-08-17] MEDS: NICOTINE 14MG/24HR PATCH TRANSDERM SCH (07:36)
[2017-08-17] MEDS: ALPRAZolam 1 MG TAB PO SCH ×2 (07:36→15:33)
[2017-08-17 07:44] VITALS: BP 108/64; TEMP 96
[2017-08-17] MEDS: SYMBICORT 160-4.5 MCG INHALER INHALATION SCH (07:54)
[2017-08-17] MEDS: IPRATROPIUM-ALBUTEROL 3 ML NEB INHALATION SCH ×3 (07:54→15:31)
[2017-08-17] MEDS ORDERED: predniSONE 20 MG TAB PO SCH (09:00)
--- NOTE | 2017-08-17 11:44 | DS ---
DISCHARGE SUMMARY FINAL DIAGNOSES: 1. Chronic obstructive pulmonary disease acute exacerbation with acute purulent tracheobronchitis. 2. Change in mental status, confusion, possibly acute metabolic encephalopathy, possibly secondary to hypoxia or combination medication induced. 3. Hypercalcemia. 4. Increased WBC. 5. History of asthma. 6. Chronic obstructive pulmonary disease. 7. History pneumonia. 8. History of migraines. 9. History of degenerative joint disease. 10.History of anxiety and depression. 11.History of continued ongoing nicotine dependence. 12.FULL CODE. DISCHARGE DISPOSITION: The patient is being discharged in stable condition with guarded prognosis. HISTORY OF PRESENT ILLNESS: This 52-year-old woman with a past history of multiple medical problems as mentioned, being followed by Dr. Marck Henning in the outpatient setting admitted with COPD acute exacerbation as well as change in mental status which was thought to be a combination of medications, hypoxia. The patient was treated symptomatically. Patient improved significantly. Psychiatry has been consulted for evaluation of the psych medications. Otherwise the patient is seen by pulmonology. On exam, vitals are stable. CARDIOVASCULAR: S1, S2. ABDOMEN: Soft. NERVOUS SYSTEM: No focal deficit. DISCHARGE ADVICE: 1. Diet is cardiac. 2. Activities limited until followup. 3. Follow up with Dr. Henning in 2-3 days. 4. Follow with [facility] MANAGER as advised. 5. Followup with Dr. Martin and Neurology as recommended. MEDICATIONS: 1. Albuterol 2 puffs q.i.d. p.r.n. 2. Xanax 1 mg p.o. t.i.d. 3. Elavil 100 mg q.h.s. and Wellbutrin XR 150 mg p.o. daily; both per psych. 4. Vitamin D2 50,000 daily. 5. Breo Ellipta 1 puff daily. 6. [place] 10 mg q.6h p.r.n. 7. Habitrol 14 per day. No smoking. 8. Protonix 40 daily. 9. Prednisone taper will be 40 mg daily for 3 days, 30 for 3 days, 20 for 3 days and 10 for 3 days and then discontinue. Once again, the patient will be discharged in stable condition with guarded prognosis. MMODL / IJN: [id number] /
--- NOTE | 2017-08-17 11:47 | P.PN ---
Subjective Progress Note Date: 08/17/17 Principal diagnosis: Acute exacerbation of chronic obstructive pulmonary disease. A 52-year-old female patient known history of COPD, utilize oxygen on and off at home, was currently living with a roommate. The patient came into the hospital because of altered mentation, confusion, increased weakness. She has chronic dyspnea in addition related to her COPD. Based on the reported history , the patient was being evaluated by the nurse practitioner at Dr. Marck Henning' s office. The patient has been chronically maintained on Xanax for anxiety. She has been taking the medication for more than 25 years. An attempt was made to add Wellbutrin in things patient gradually of Xanax. As this being done, the patient became confused, unable to concentrate, somewhat lethargic and weak. For that reason she came into the hospital for further investigation. She was seen by neurology and she is in the process of being seen by psychiatry. CAT scan of the brain was negative. No fever. No chills. No focal neurological deficits. No seizure activity. No loss in the urine or bowel activity. No headache. No neck stiffness. She is currently back to her normal mentation. In terms of her breathing, she is known to have COPD and she has a chronic smoker smoking between 4-5 cigarettes a day. She is a maintained on Breo Ellipta outpatient basis once a day. No cough. No sputum production. No pleurisy. No other new complaints otherwise for now. Her chest x-ray is also clear. The patient is seen again today 08/17/2017 in follow-up on the selective care unit. She is awake and alert in no acute distress. She is hoping to go home today. She states she is breathing quite a bit better today as compared to yesterday. She still has some bilateral and wheezing though. She is maintaining O2 saturations in the low 90s on room air. She does have home oxygen. She is afebrile. Urine and blood cultures revealed no growth to date. Objective - Vital Signs Vital signs: Vital Signs Temp 96.0 F L 08/17/17 07:43 Pulse 96 08/17/17 11:38 Resp 18 08/17/17 07:43 BP 108/64 08/17/17 07:43 Pulse Ox 91 L 08/17/17 07:43 Intake & Output 08/16/17 08/17/17 08/17/17 18:59 06:59 18:59 Intake Total 1080 10 10 Output Total 700 Balance 380 10 10 Weight 41.2 kg 42.5 kg Intake: IV 10 10 .9 10 10 Oral 1080 Output: Urine 700 Other: Voiding Method Toilet Toilet # Voids 2 - Exam GENERAL EXAM: Alert, active, comfortable in no apparent distress. HEAD: Normocephalic. EYES: Normal reaction of pupils, equal size. NOSE: Clear with pink turbinates. THROAT: No erythema or exudates. NECK: No masses, no JVD. CHEST: No chest wall deformity. LUNGS: Equal air entry with bilateral end expiratory wheeze. Diminished. CVS: S1 and S2 normal with no audible murmur, regular rhythm. ABDOMEN: No hepatosplenomegaly, normal bowel sounds, no guarding or rigidity. SPINE: No scoliosis or deformity SKIN: No rashes CENTRAL NERVOUS SYSTEM: No focal deficits, tone is normal in all 4 extremities. EXTREMITIES: There is no peripheral edema. No clubbing, no cyanosis. Peripheral pulses are intact. - Labs CBC & Chem 7: 08/16/17 06:42 08/16/17 06:42 Labs: Abnormal Lab Results - Last 24 Hours (Table) 08/16/17 08/16/17 08/16/17 Range/Units 11:34 16:37 21:03 POC Glucose (mg/dL) 206 H 155 H 187 H (75-99) mg/dL Microbiology - Last 24 Hours (Table) 08/15/17 12:00 Urine Culture - Final Urine,Voided 08/15/17 11:03 Blood Culture - Preliminary Blood No Growth after 24 hours Assessment and Plan Assessment: Impression: 1 COPD, currently inactive in stable, maintained on Breo Ellipta on outpatient basis and the patient has been stable. She is a chronic smoker and smoking cessation counseling was performed. We'll take the patient off the IV Solu Medrol and started on a prednisone burst taper and this will be a short taper to further optimize her breathing. 2 altered mentation, probably side effect of the medication versus benzodiazepine withdrawal 3 chronic anxiety/panic attacks 4 chronic depression 5 migraines Plan The patient was seen and evaluated by Dr. Martin. She is improved today as compared to yesterday. She could be discharged home later today. We'll continue with a prednisone taper. Continue her course of antibiotics. She would benefit from a workup in our office including full pulmonary function testing to evaluate the severity of her suspected COPD. She is however encouraged to call sooner with any recurrence of symptoms or other questions or concerns. I, the cosigning physician, performed a history & physical examination of the patient. Lungs sounds with end expiratory wheeze bilaterally. Diminished. Maintaining good O2 saturations in the 90s on room air. I discussed the assessment and plan of care with my nurse practitioner, Jodi Rodriguez. I attest to the above note as dictated by her.
[2017-08-17 12:08] LABS: Glucose,Whole Blood 135 mg/dL (75-99)
[2017-08-17 15:43] VITALS: PULSE 104
--- NOTE | 2017-08-17 16:24 | P.PN ---
Subjective Progress Note Date: 08/17/17 This patient is a 52-year-old female was seen yesterday for evaluation of altered mental status. Soon after admission she was found that recently she had medication changes performed by her primary care physician. She has been on Xanax chronically for the past 25 years for treatment of anxiety disorder. Her primary care physician about a week ago decided to take measures to try and wean her off of Xanax and started her on Wellbutrin. She had taken about 5 doses of Wellbutrin and showed signs of increased confusion and disorientation with lethargy. She was admitted to hospital and was seen in neurology consultation yesterday. CAT scan of the brain was negative for any acute changes. Clinical history suggests an acute metabolic encephalopathy possibly due to drug drug interactions. It is recommended she be seen by psychiatry for further adjustment of her antidepressant medications as well as anxiety disorder. Patient is doing much better today. She is able to answer all questions appropriately. She was seen by pulmonary medicine who have cleared her for COPD. She does not appear to show any acute changes at this time. She was advised smoking cessation counseling as she is a chronic smoker. She does continue to show signs of better mentation today as compared to yesterday. We will continue to follow her progress closely. Her COPD remained stable as per pulmonary medicine. We will await further recommendations from psychiatry regarding her home medications. Apparently the patient will be discharged home today. She will follow-up with psychiatry as outpatient. Her breathing is much improved today and still has some degree of bilateral wheezing. Pulmonary medicine has given final recommendations. Patient to follow-up with her primary care physician soon after discharge. Her overall prognosis at this time remains fair. Objective - Vital Signs Vital signs: Vital Signs Temp 96.0 F L 08/17/17 07:43 Pulse 104 H 08/17/17 15:41 Resp 18 08/17/17 07:43 BP 108/64 08/17/17 07:43 Pulse Ox 91 L 08/17/17 07:43 Intake & Output 08/16/17 08/17/17 08/17/17 18:59 06:59 18:59 Intake Total 1080 10 10 Output Total 700 Balance 380 10 10 Weight 41.2 kg 42.5 kg Intake: IV 10 10 .9 10 10 Oral 1080 Output: Urine 700 Other: Voiding Method Toilet Toilet # Voids 2 - Exam Physical examination: PHYSICAL EXAMINATION: Patient is resting comfortably in bed. VITAL SIGNS: Blood pressure is [108/64]. Heart rate is [98]. Respiration is [18] . Temperature is [96.0]. HEENT: Head is atraumatic, neck is supple, there were no carotid bruits. CHEST: Lungs are clear to auscultation and percussion. CARDIAC: S1, S2 normal rate and rhythm. There is no murmur. ABDOMEN: Soft and nontender. Bowel sounds are present. EXTREMITIES: There is no pedal edema. Peripheral pulses are present. Neurological examination: Patient has a nonfocal neurological examination today. - Labs CBC & Chem 7: 08/16/17 06:42 08/16/17 06:42 Labs: Abnormal Lab Results - Last 24 Hours (Table) 08/16/17 08/16/17 08/17/17 Range/Units 16:37 21:03 11:49 POC Glucose (mg/dL) 155 H 187 H 135 H (75-99) mg/dL Microbiology - Last 24 Hours (Table) 08/15/17 12:00 Urine Culture - Final Urine,Voided 08/15/17 11:03 Blood Culture - Preliminary Blood No Growth after 24 hours Assessment and Plan (1) Acute encephalopathy Current Visit: Yes Status: Acute Code(s): G93.40 - ENCEPHALOPATHY, UNSPECIFIED SNOMED Code(s): 45351734 (2) Depression Current Visit: Yes Status: Acute Code(s): F32.9 - MAJOR DEPRESSIVE DISORDER , SINGLE EPISODE, UNSPECIFIED SNOMED Code(s): 26945121 (3) Panic attacks Current Visit: Yes Status: Acute Code(s): F41.0 - PANIC DISORDER [EPISODIC PAROXYSMAL ANXIETY] SNOMED Code(s): 571543508 Plan: This patient is a 52-year-old female being evaluated for altered mental status. She was admitted yesterday and was seen in urology consultation. Her neurological exam findings suggested possibility of metabolic encephalopathy possibly from drug drug interactions with several of her known antidepressant medications. Psychiatry has been consulted and we are waiting the recommendations. Her neurological examination remains nonfocal. She underwent computed tomography scan of the brain which is negative. She is a chronic smoker and she has been recommended to consider a smoke cessation program. Her COPD is stable at this time. Neurologically her exam is nonfocal. We will continue to await further recommendations from psychiatry regarding her history of anxiety disorder and depression. Her medications may need adjustments. Patient will follow up with psychiatry as outpatient. She is being considered for discharge home later today. Neurologically her exam is nonfocal. She is to follow directions as per pulmonary medicine regarding her symptoms of COPD. We will continue to monitor progress closely during this admission. Her overall prognosis remains guarded.
[2017-08-17 17:06] LABS: Glucose,Whole Blood 138 mg/dL (75-99)
--- NOTE | 2017-08-17 19:05 | P.CN ---
Psychiatric Consult - . Consult date: 08/17/17 Consult:: 08/17/17 18:41 Patient is 52 year old women. She reports history of anxiety following the of her mother 30 years ago. She describes her anxiety as feeling restless , shaky, hyperventilating, elephant sitting on her chest, racing thoughts, inability to get work done due to feeling overwhelmed with her anxiety. She reports being started on xanax around the age of 31. She claims her xanax dose was initiated at 0.25mg three times daily and was gradually increased to her current dose of 1mg po tid. She says xanax helps her to stay calm, is able to get her things done with feeling overwhelmed. She claims to have been tried on medications like prozac, cymbalta, zoloft and wellbutrin. She says when ever she takes antidepressants she doesnt do well. She says her anxiety gets even more worse where in she is unable to think, claims she forgets things and her mind races. She claims maximum period she took antidepressants was one week and weaned herself off of those medications due her fear of her anxiety getting worse. She also reports being prescribed elavil 100mg for sleep by her primary care physician. She claims elaviil helps her to sleep better and is able to tolerate it well with out any side effects. She is currently reluctant to try any other antidepresant medication sand wants to continue luis enrique xanax for her anxiety. She denies psychiatric hospitalizations. She denies current symptoms of depression. She denies hopelessness or worthlessness. She reports good sleep and appetite. She denies symptoms of lj and psychosis. Denies use of illicit drugsdisorder Mental status exam. She is 52 year old woman. She was sitting on the bed with nasal canula for oxygen. She reports suffering from COPD. She is not in any distress. She maintains good eye contact. No psychomotor agitation or retardation noted. She maintains good eye contact. She is pleasant and cooperative. Her speech and thought process are goal directed. Her mood is euthymic and affect constricted. She denies auditory or visual halluciantions. No paranoia, did not appear delusional. She is alert and oriented to time, place and person. She has fair insight and judgment. Assessment 1. Anxiety disorder, controlled with xanax 2. Insomnia respoded well to Elavil Plan 1. Will recommend increasing the dose of elavil for anxiety as the patient is reluctant to be treated with any other antidepressant medications 2. Follow up with Dr. Henning.
== END 2017-08-17 18:42 | disposition home or self-care (01) | DRG 190 ==
LOC: EC 10:10 → 6SEL 14:49
PROVIDERS: ADMIT Hospitalist; ATTEND Hospitalist
DX: J44.0 Chronic obstructive pulmonary disease with (acute) lower respiratory infection (principal); G93.41 Metabolic encephalopathy; J96.11 Chronic respiratory failure with hypoxia; E83.52 Hypercalcemia; J44.1 Chronic obstructive pulmonary disease with (acute) exacerbation; F41.9 Anxiety disorder, unspecified; F32.9 Major depressive disorder, single episode, unspecified; G43.909 Migraine, unspecified, not intractable, without status migrainosus; G89.29 Other chronic pain; M54.9 Dorsalgia, unspecified; J20.9 Acute bronchitis, unspecified; M19.90 Unspecified osteoarthritis, unspecified site; F17.210 Nicotine dependence, cigarettes, uncomplicated; G47.00 Insomnia, unspecified; F41.0 Panic disorder [episodic paroxysmal anxiety]; Z79.51 Long term (current) use of inhaled steroids; Z79.899 Other long term (current) drug therapy; Z88.7 Allergy status to serum and vaccine; Z87.01 Personal history of pneumonia (recurrent); Z82.49 Family history of ischemic heart disease and other diseases of the circulatory system; Z81.8 Family history of other mental and behavioral disorders; Z80.8 Family history of malignant neoplasm of other organs or systems; Z71.6 Tobacco abuse counseling
CPT/HCPCS: 36415; 70450; 71046; 80048; 80053; 81001; 82550; 82553; 82803; 83036; 83605; 84484; 85025; 85610; 85730; 86850; 86900; 86901; 87040; 87086; 87502; 93005; 94640; 94760; 96361; 96374; 96375; 99291